=== PATIENT | male | born 1965 | race Asian ===

== ENCOUNTER 2018-05-08 06:25 | Inpatient (IN) | payer OTHER ==
[2018-05-07 11:51] VITALS: BMI 25.5
[2018-05-08 07:09] LABS: ALBUMIN 3.8 g/dl (3.4-5.0); ALK PHOS 59 U/L (45-117); ANION GAP 7 MMOL/L (8-16); BILIRUBIN,TOTAL 0.4 mg/dL (0.2-1); BLOOD UREA NITROGEN 24 mg/dL (7-18); CALCIUM 9.1 mg/dL (8.5-10.1); CHLORIDE 104 mmol/L (98-107); CO2 27 mmol/L (21-32); CREATININE 1.1 mg/dL (0.55-1.3); GLUCOSE,RANDOM 207 mg/dL (74-106); POTASSIUM 4.1 mmol/L (3.5-5.1); SGOT/AST 19 U/L (15-37); SGPT/ALT 39 U/L (13-61); SODIUM 137 mmol/L (136-145); TOT PROT 7.4 g/dl (6.4-8.2)
[2018-05-08] MEDS ORDERED: GENTAMICIN SO4 80 MG/2 ML VIAL ONE (07:19)
[2018-05-08] MEDS ORDERED: LIDOCAINE 1%/EPI 1:100000 (20 ML MULTI DOSE VIAL) ONE (07:19)
[2018-05-08] MEDS ORDERED: THROMBIN (BOVINE) 20,000 UNIT VIAL TP ONE (07:20)
[2018-05-08] MEDS ORDERED: BUPIVACAINE HCL/PF 0.5% (5MG/ML) 10 ML VIAL ONE (07:20)
[2018-05-08] MEDS ORDERED: MIDAZOLAM HCL 2 MG/2 ML SINGLE DOSE VIAL ONE (07:35)
--- NOTE | 2018-05-08 07:58 | HP ---
History & Physical Update - Physical Physical: No Change - Assessment Assessment: No Change - Plan Plan: No Change (No change in medical history since cardiology clearance on . No h/o dvt/pe. Labs reviewed.)
[2018-05-08] MEDS ORDERED: fentaNYL CITRATE 250 MCG/5 ML VIAL ONE (08:12)
[2018-05-08] MEDS ORDERED: VANCOMYCIN 1,000 MG VIAL (RESTRICTED TO ID ONLY) ONE (08:13)
[2018-05-08] MEDS ORDERED: DEXAMETHASONE SOD PHOSPHATE 4 MG/1 ML VIAL ONE (08:13)
[2018-05-08] MEDS ORDERED: ceFAZolin SODIUM 1 GM VIAL ONE ×3 (08:13→16:21)
[2018-05-08] MEDS ORDERED: ceFAZolin 2 GRAM PREMIX BAG IVPB ONE (08:14)
[2018-05-08] MEDS ORDERED: PROPOFOL 20 ML ONE ×2 (08:15)
[2018-05-08] MEDS ORDERED: ROCURONIUM BROMIDE 50 MG/5 ML VIAL ONE ×3 (08:17→10:20)
[2018-05-08] MEDS ORDERED: VANCOMYCIN 1 GRAM (PRE-DOCKED) 1,000 MG/250 ML BAG IVPB ONE (08:25)
[2018-05-08] MEDS ORDERED: RANITIDINE HCL 50 MG/2 ML VIAL ONE (08:26)
[2018-05-08] MEDS ORDERED: LIDOCAINE 1%/EPI 1:100000 (50 ML MULTI DOSE VIAL) NR ONE (08:33)
[2018-05-08] MEDS ORDERED: PHENYLEPHRINE HCL 10 MG/1 ML SINGLE DOSE VIAL ONE ×3 (08:35→12:59)
[2018-05-08] MEDS ORDERED: THROMBIN (BOVINE) 5,000 UNIT VIAL TP ONE (09:15)
[2018-05-08] MEDS ORDERED: BACITRACIN 50,000 UNITS VIAL TP ONE ×2 (09:16→12:15)
[2018-05-08] MEDS ORDERED: GENTAMICIN SO4 80 MG/2 ML VIAL IVPB ONE ×2 (09:17→12:15)
[2018-05-08] MEDS ORDERED: PROMETHAZINE HCL 25 MG/1 ML VIAL IVPUSH PRN (09:20)
[2018-05-08] MEDS ORDERED: DEXAMETHASONE SOD PHOSPHATE 4 MG/1 ML VIAL IVPUSH PRN (09:21)
[2018-05-08] MEDS ORDERED: ONDANSETRON 4 MG/2 ML VIAL IVPUSH PRN ×2 (09:21→13:30)
[2018-05-08] MEDS ORDERED: PROMETHAZINE HCL 25 MG/1 ML VIAL IVPB PRN (09:21)
[2018-05-08] MEDS ORDERED: ePHEDrine SULFATE 50 MG/1 ML AMPULE ONE (11:18)
[2018-05-08] MEDS ORDERED: ceFAZolin SODIUM 1 GM VIAL IVPB ONE (11:19)
[2018-05-08] MEDS ORDERED: BUPIVACAINE HCL/PF (5 MG/ML) 30 ML VIAL IJ ONE (12:23)
[2018-05-08] MEDS ORDERED: ONDANSETRON 4 MG/2 ML VIAL ONE (13:28)
[2018-05-08] MEDS ORDERED: oxyCODONE HCL 5 MG TABLET PO PRN ×2 (13:30)
[2018-05-08] MEDS ORDERED: LACTATED RINGERS SOLUTION 1,000 ML/1,000 ML INFUS.BAG IV SCH (13:30)
[2018-05-08] MEDS ORDERED: diphenhydrAMINE HCL 25 MG CAPSULE (FP) PO PRN (13:30)
[2018-05-08] MEDS ORDERED: morphine SULFATE 4 MG/ML VIAL IVPUSH PRN (13:30)
[2018-05-08] MEDS ORDERED: GLYCOPYRROLATE 0.2 MG/1 ML VIAL ONE (14:01)
[2018-05-08] MEDS ORDERED: NEOSTIGMINE METHYLSULFATE 0.5 MG/1 ML - 10 ML MDV ONE (14:01)
[2018-05-08] MEDS ORDERED: HEPARIN NA (PORCINE) 5,000 UNITS/ML 1ML VIAL SQ SCH (14:45)
[2018-05-08] MEDS ORDERED: HYDROmorphone *PCA* 10MG/50ML DISP.SYRIN PCA ONE (14:46)
[2018-05-08] MEDS: HYDROmorphone *PCA* 10MG/50ML DISP.SYRIN PCA SCH (15:03)
[2018-05-08] MEDS ORDERED: POLYETHYLENE GLYCOL 3350 119 GM BTL PO PRN (15:45)
[2018-05-08 15:59] LABS: BASO % 0.3 % (0-2.0); EOS % 0.2 % (0-4.5); HEMATOCRIT 31.4 % (35.4-49); HEMOGLOBIN 10.7 GM/dL (11.7-16.9); LYMPH % 6.6 % (8-40); MCH 24.8 pg (25.7-33.7); MCHC 34.1 g/dl (32.0-35.9); MEAN CELL VOLUME 72.8 fl (80-96); MEAN PLT VOLUME 8.7 fl (7.5-11.1); MONO % 0.8 % (3.8-10.2); NEUT % 92.1 % (42.8-82.8); PLATELET COUNT 246 K/MM3 (134-434); RBC 4.31 M/mm3 (4.00-5.60); RDW 14.2 % (11.9-15.9); WHITE BLOOD COUNT 14.3 K/mm3 (4.0-10.0)
[2018-05-08 16:21] LABS: ANION GAP 13 MMOL/L (8-16); BLOOD UREA NITROGEN 28 mg/dL (7-18); CALCIUM 8.2 mg/dL (8.5-10.1); CHLORIDE 102 mmol/L (98-107); CO2 19 mmol/L (21-32); CREATININE 1.8 mg/dL (0.55-1.3); POTASSIUM 5.4 mmol/L (3.5-5.1); SODIUM 134 mmol/L (136-145)
[2018-05-08] MEDS: CEFAZOLIN 1 GM in DEXTROSE 5%-WATER - 50 ML IVPB SCH ×2 (16:25→19:55)
[2018-05-08 16:27] LABS: GLUCOSE,RANDOM 426 mg/dL (74-106)
[2018-05-08] MEDS ORDERED: INSULIN SLIDING SCALE (NOVOLOG) 1 VIAL SQ SCH ×3 (16:30→18:46)
[2018-05-08] MEDS ORDERED: CEFAZOLIN 1 GM in DEXTROSE 5%-WATER - 50 ML IVPB SCH (18:00)
--- NOTE | 2018-05-08 18:29 | PN ---
Progress Note (short form) - Note Progress Note: 52 yo man
--- NOTE | 2018-05-08 18:35 | HP ---
Admitting History and Physical - Primary Care Physician PCP: Brian Gaitan - Admission Chief Complaint: postop cervical spinal surgery History of Present Illness: underwent cervical 4-5-6 corpectomies and C2-T1 laminectomies has had prolonged hypotension during procedure and decreased urine output postop no resting in bed History Source: Patient Limitations to Obtaining History: Clinical Condition - Past Medical History Cardiovascular: Yes: HTN Musculoskeletal: Yes: Other (cervical spondylosis) Endocrine: Yes: Diabetes Mellitus (on insulin pump at home) - Past Surgical History Past Surgical History: Yes: None - Smoking History Smoking history: Never smoked - Alcohol/Substance Use Hx Alcohol Use: No - Social History ADL: Independent Home Medications - Allergies Allergies/Adverse Reactions: Allergies Allergy/AdvReac Type Severity Reaction Status Date / Time No Known Allergies Allergy Verified 05/07/18 11:51 - Home Medications Home Medications: Ambulatory Orders Aspirin [Ecotrin] 81 mg PO DAILY 05/07/18 Carvedilol [Coreg -] 25 mg PO DAILY 05/07/18 Celecoxib [Celebrex] 200 mg PO DAILY 05/07/18 Fenofibrate Nanocrystallized [Fenofibrate] 48 mg PO DAILY 05/07/18 Gabapentin [Neurontin] 600 mg PO DAILY 05/07/18 Ibuprofen [Ibu] 600 mg PO BID 05/07/18 Terazosin HCl 4 mg PO HS 05/07/18 Tramadol HCl 50 mg PO PRN 05/07/18 Valsartan 320 mg PO DAILY 05/07/18 Vitamin B Complex [B Complex] 1 each PO DAILY 05/07/18 Family Disease History - Family Disease History Family Disease History: Diabetes: Mother (HTN), Other: Father ( of CAD at 72 ) Review of Systems - Review of Systems HENT: reports: Difficult Swallowing Musculoskeletal: reports: Back Pain (cervical spine pain) Neurological: reports: Dizziness Pain Intensity: 9 Physical Examination Vital Signs: Vital Signs Temperature 97.9 F 05/08/18 16:45 Pulse Rate 113 H 05/08/18 16:45 Respiratory Rate 10 05/08/18 16:45 Blood Pressure 141/74 05/08/18 16:45 O2 Sat by Pulse Oximetry (%) 99 05/08/18 16:45 Constitutional: Yes: Moderate Distress Eyes: Yes: Conjunctiva Clear HENT: Yes: Normocephalic Neck: Yes: Other (in neck brace) Cardiovascular: Yes: Regular Rate and Rhythm Respiratory: Yes: CTA Bilaterally Gastrointestinal: Yes: Normal Bowel Sounds, Soft Renal/: Yes: Mohan Present (draining over 1000cc clear urine) Musculoskeletal: Yes: Back Pain Extremities: Yes: WNL Edema: No Peripheral Pulses WNL: Yes Wound/Incision: Yes: Dressing Dry and Intact, Other (two drain with bloody discharge) Neurological: Yes: Alert ...Motor Strength: WNL (moves all 4 extremities equally) Psychiatric: Yes: WNL Labs: CBC, BMP 05/08/18 15:30 05/08/18 15:30 Problem List - Problems (1) Cervical spondylosis Code(s): M47.812 - SPONDYLOSIS W/O MYELOPATHY OR RADICULOPATHY, CERVICAL REGION Qualifiers: Spinal osteoarthritis complication: with radiculopathy Qualified Code(s): M47.22 - Other spondylosis with radiculopathy, cervical region (2) Hypertension Code(s): I10 - ESSENTIAL (PRIMARY) HYPERTENSION Qualifiers: Hypertension type: essential hypertension Qualified Code(s): I10 - Essential (primary) hypertension (3) Diabetes mellitus Code(s): E11.9 - TYPE 2 DIABETES MELLITUS WITHOUT COMPLICATIONS Qualifiers: Diabetes mellitus type: type 2 Diabetes mellitus joint filler insulin use: with care home use (4) Acute prerenal azotemia Code(s): R79.89 - OTHER SPECIFIED ABNORMAL FINDINGS OF BLOOD CHEMISTRY Assessment/Plan urine output is improving continue iv hydration re-check renal fnct in am hold bp meds for now pain control mohan riss lantus 10 units
[2018-05-08] MEDS: SODIUM CHLORIDE 1,000 ML IV SCH ×2 (18:37→22:17)
[2018-05-08] MEDS: DOCUSATE SODIUM 100 MG CAPSULE (FP) PO SCH ×2 (18:37→21:14)
[2018-05-08] MEDS ORDERED: INSULIN (NOVOLOG) ASPART 100 UNITS/ML 10ML VIAL ONE (19:57)
[2018-05-08 20:05] LABS: PLATELET ESTIMATE ADEQUATE
[2018-05-08] MEDS: CEFAZOLIN 1 GM/D5W 1 GM/50 ML BAG IVPB SCH (20:05)
[2018-05-08] MEDS: INSULIN SLIDING SCALE (NOVOLOG) 1 VIAL SQ SCH (21:15)
[2018-05-08] MEDS: HEPARIN NA (PORCINE) 5,000 UNITS/ML 1ML VIAL SQ SCH (21:15)
[2018-05-08] MEDS ORDERED: INSULIN (LEVEMIR) 100 UNITS/ML UNITS SQ SCH (22:00)
[2018-05-08] MEDS ORDERED: TERAZOSIN HCL 2 MG CAPSULE PO SCH (22:00)
[2018-05-08] MEDS ORDERED: SENNOSIDES 8.6MG TABLET (FP) PO SCH (22:00)
[2018-05-09] MEDS: CEFAZOLIN 1 GM/D5W 1 GM/50 ML BAG IVPB SCH ×3 (01:30→18:45)
[2018-05-09] MEDS: DOCUSATE SODIUM 100 MG CAPSULE (FP) PO SCH ×3 (05:45→21:26)
[2018-05-09] MEDS: HEPARIN NA (PORCINE) 5,000 UNITS/ML 1ML VIAL SQ SCH ×3 (05:45→21:27)
[2018-05-09 06:30] LABS: HEMATOCRIT 29.4 % (35.4-49); HEMOGLOBIN 9.6 GM/dL (11.7-16.9); MCH 23.7 pg (25.7-33.7); MCHC 32.5 g/dl (32.0-35.9); MEAN CELL VOLUME 72.8 fl (80-96); MEAN PLT VOLUME 7.8 fl (7.5-11.1); PLATELET COUNT 208 K/MM3 (134-434); RBC 4.04 M/mm3 (4.00-5.60); RDW 14.2 % (11.9-15.9); WHITE BLOOD COUNT 14.7 K/mm3 (4.0-10.0)
--- NOTE | 2018-05-09 06:36 | HOSP ---
Subjective - Review of Symptoms Events since last encounter: Paged by nursing staff that patient is experiencing Chest pain. Patient describes pain as 3/10, pressure at the left lower sternal border near the 4th intercoastal space that is reproducible with palpation, worse with inhalation and does not radiate. Patient has had diaphoresis since arriving on the floor earlier that evening. Denies any SOB, heart burn, palpitations, nausea. Temp 98.7, BP 131/60, HR 120, R 16, 98% on 2L NC Repeat vitals BP 161/85, HR 125, R 16, 100% on 2L NC Able to speak full sentences, Lying with head of bed elevated Wearing C-Collar with Drain present RRR S1 S2 CTA B/L EKG Ordered shows Sinus Tachycardia to 130, No New ST or T wave changes Troponin ordered STAT Physical Examination Vital Signs: Vital Signs Temperature 97.8 F 05/09/18 01:00 Pulse Rate 120 H 05/09/18 01:00 Respiratory Rate 18 05/09/18 01:00 Blood Pressure 131/60 05/09/18 01:00 O2 Sat by Pulse Oximetry (%) 99 05/08/18 19:35 Visit type - Emergency Visit Emergency Visit: No - New Patient This patient is new to me today: Yes Date on this admission: 05/09/18 - Critical Care Critical Care patient: No
[2018-05-09] MEDS: INSULIN SLIDING SCALE (NOVOLOG) 1 VIAL SQ SCH ×4 (06:39→21:40)
[2018-05-09 06:58] LABS: ANION GAP 6 MMOL/L (8-16); BLOOD UREA NITROGEN 29 mg/dL (7-18); CHLORIDE 106 mmol/L (98-107); CO2 28 mmol/L (21-32); GLUCOSE,RANDOM 218 mg/dL (74-106); POTASSIUM 4.3 mmol/L (3.5-5.1); SODIUM 141 mmol/L (136-145)
[2018-05-09] MEDS: SODIUM CHLORIDE 1,000 ML IV SCH (08:00)
[2018-05-09] MEDS ORDERED: CARVEDILOL 25 MG TABLET (FP) PO SCH ×3 (08:15→10:00)
[2018-05-09] MEDS: VALSARTAN 160 MG TABLET (UD) PO SCH ×2 (08:44→10:19)
--- NOTE | 2018-05-09 08:54 | PN ---
Progress Note (short form) - Note Progress Note: POD#1 anterior and posterior cervical spinal surgery episode of left sided chest pain this am, EKG without acute changes, troponin reviewed no chest pain at present, c./o difficulty swallowing Vital Signs Period Temp Pulse Resp BP Sys/Wood Pulse Ox Last 24 Hr 97.8 F-99.3 F 105-122 10-20 113-167/59-79 98-100 Troponin 0.21 CBC, BMP // 06:20 05/09/ 06:20 S1S2 tachy lungs cta ant cervical drains in place with bloody discharge mohan with clear urine and soft NT tr non pitting edema in hands and feet decreased strength in right arm IMP POD#1 spinal surgery intraop hypotension, prerenal azotemia-resolved, dc iv fluids chest pain-repeat cardiac enzymes, transfer to telemetry, resume bblocker IDDM-increase lantus, cont riss, (resume insulin pump upon discharge) HTN-cont bp meds gi/dvt prophylaxis encourage po intake Problem List - Problems (1) Cervical spondylosis Code(s): M47.812 - SPONDYLOSIS W/O MYELOPATHY OR RADICULOPATHY, CERVICAL REGION Qualifiers: Spinal osteoarthritis complication: with radiculopathy Qualified Code(s): M47.22 - Other spondylosis with radiculopathy, cervical region (2) Hypertension Code(s): I10 - ESSENTIAL (PRIMARY) HYPERTENSION Qualifiers: Hypertension type: essential hypertension Qualified Code(s): I10 - Essential (primary) hypertension (3) Diabetes mellitus Code(s): E11.9 - TYPE 2 DIABETES MELLITUS WITHOUT COMPLICATIONS Qualifiers: Diabetes mellitus type: type 2 Diabetes mellitus intermediate insulin use: with truck terminal manager use (4) Acute prerenal azotemia Code(s): R79.89 - OTHER SPECIFIED ABNORMAL FINDINGS OF BLOOD CHEMISTRY
--- NOTE | 2018-05-09 09:16 | EKG ---
Test Reason : Blood Pressure : / mmHG Vent. Rate : 130 BPM Atrial Rate : 130 BPM P-R Int : 124 ms QRS Dur : 084 ms QT Int : 298 ms P-R-T Axes : 078 032 -11 degrees QTc Int : 438 ms SINUS TACHYCARDIA NONSPECIFIC T WAVE ABNORMALITY ABNORMAL ECG NO PREVIOUS ECGS AVAILABLE Confirmed by IRENE RAINEY, FEDERICO ([id number]) on 05/09/2018 9:15:36 AM Referred By: Deshawn Joyce Confirmed By:FEDERICO BONILLA MD
--- NOTE | 2018-05-09 09:20 | PN ---
Progress Note (short form) - Note Progress Note: POD 1, S/P C4, 5, 6 ACDF, C2-T1 PCDF Pt seen and examined. Am events noted, per RN: Pt c/o chest pain, and difficulty breathing/swallowing ,and right arm sided weakness this AM, pt hypertensive: 167/69, pulse 120, EKG done with no acute changes noted, Troponin 0.21. On exam, pt reports significant pain in his neck, mostly posterior. Has minimal improvement with PANCAKE PROFESSIONAL administration. Endorses headache and slight blurry vision. Has not been oob, is having difficulty swallowing due to throat pain and swelling. States chest pain has resolved. Is having some sob when pain intensity increases. Reports RUE weakness which is new from surgery. Denies n/v/ d, calf pain/edema. Vital Signs Temp 98.4 F 05/09/18 09:00 Pulse 118 H 05/09/18 09:00 Resp 18 05/09/18 09:00 BP 155/91 05/09/18 09:00 Pulse Ox 98 05/09/18 09:00 Intake & Output 05/08/18 05/08/18 05/09/18 11:59 23:59 11:59 Intake Total 6500 800 1150 Output Total 950 3785 1230 Balance 5550 -2985 -80 Weight 178 lb Intake: IV 6500 750 1150 LACTATED RINGERS SOLUTION 250 1,000 ml In 1,000 ml @ 125 mls/hr IV ASDIR TODD Rx#:[id number] Normal Saline - 1,000 ml 1150 @ 115 mls/hr IV ASDIR TODD Rx#:[id number] IVPB 50 Output: Drainage 85 230 drain 1 50 jace 2 180 Urine 200 3700 1000 Mohan 1600 1000 Estimated Blood Loss 750 Other: Voiding Method Indwelling Catheter Indwelling Catheter Height 5 ft 10 in Body Mass Index (BMI) 25.5 Weight Measurement Method Stated by Patient CBC, BMP 05/09/18 06:20 05/09/18 06:20 Gen: awake, alert, appears in pain during exam Neck: anterior dressing c/d/i, mild swelling. Able to speak in full sentences. 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 SILT b/l ue's B/L le's 5/5 DF/PF, Sensation slightly diminished in b/l feet (baseline per pt). A/P: 52 y/o M w/ PMHx htn, hld, IDDM, cervical spondylosis, now POD 1, s/p C4, 5 , 6 ACDF, C2-T1 PCDF. Creatinine improved to baseline. Tachycardic to 120s, secondary to pain. RUE weakness, difficult to ascertain if it is due to a nerve palsy/nerve edema vs pain. Possibly pain related as pt was visualized moving rue during examination. -Pain regimen discussed with anesthesia who will come by to evaluate PANCAKE PROFESSIONAL dosage , Ofirmev 1g q6hrs ordered -Telemetry monitoring ordered -Recheck troponin this afternoon -Monitor vitals -Keep JPs in place, monitor and record output -Keep mohan in place until pt is oob -oob to chair -PT -Bowel regimen as ordered -DVT prophylaxis with Heparin 5000 units sq tid and b/l scds -Incentive spirometry strongly encouraged, visualized pt using IS -Keep brace in place, may remove for 1 hr per day -Continue Ancef 1g q8hrs while drain is in place -Remainder of management per medicine above d/w attending Dr Hernandez and Dr Lamar
[2018-05-09] MEDS ORDERED: BENZOCAINE/MENTH/CETYLPYRD CL 1 EACH LOZENGE MM PRN (09:23)
[2018-05-09] MEDS: HYDROmorphone *PCA* 10MG/50ML DISP.SYRIN PCA SCH (09:30)
[2018-05-09] MEDS ORDERED: GABAPENTIN 300 MG CAPSULE (FP) PO SCH (10:00)
[2018-05-09] MEDS ORDERED: FENOFIBRIC ACID 45 MG CAP PO SCH (10:00)
[2018-05-09] MEDS ORDERED: FOLIC ACID 1 MG TABLET (FP) PO SCH (10:00)
[2018-05-09] MEDS ORDERED: VITAMIN B COMP W-C 1 EA TABLET PO SCH (10:00)
[2018-05-09] MEDS ORDERED: ASPIRIN COATED 81 MG TABLET.EC PO SCH (10:00)
[2018-05-09] MEDS ORDERED: CELECOXIB 200 MG CAPSULE PO SCH (10:00)
[2018-05-09] MEDS ORDERED: VALSARTAN 160 MG TABLET (UD) PO SCH (10:00)
[2018-05-09] MEDS ORDERED: FERROUS SO4 325 MG TABLET (FP) PO SCH (10:00)
[2018-05-09] MEDS: PANTOPRAZOLE SODIUM 40 MG VIAL IVPUSH SCH (10:19)
[2018-05-09] MEDS ORDERED: PT OWN MED DRAWER 7, Y5N ONE ×2 (10:34→16:10)
--- NOTE | 2018-05-09 11:05 | PN ---
Progress Note (short form) - Note Progress Note: Anesthesiology Post-op/Pain Service 52 y.o. man POD#1 s/p Cervical spine corpectomies with reconstruction and C2-T1 Fusion under GA with post-op POLICE OFFICER BOOKING. Pt. is currently in ICU, awaiting telemetry bed. He is in bed, sleepy but responsive. Per RN, pt. has been having hypopneic/apneic episodes which has necessitated a Venti-mask to maintain SpO2 >90%. He has been using POLICE OFFICER BOOKING and is noted to be resting with POLICE OFFICER BOOKING button in hand. Of note, pt has also had recent chest pain which has improved, though accompanied by a troponin spike. 52 y.o. man with post-op chest pain and hypopnea on POLICE OFFICER BOOKING. D/w RN to try non-opiate meds such as IV acetaminophen. Continue POLICE OFFICER BOOKING but discussed taking the POLICE OFFICER BOOKING button out of pt's hand while he is sleeping/groggy so that he does not mistakenly administer another dose. Informed RN to please call if worsening respiratory issues. Primary team to consult Cardiology to f/u on chest pain and troponin levels. Will follow.
[2018-05-09] MEDS ORDERED: morphine SULFATE 4 MG/ML VIAL IVPUSH PRN ×2 (12:00→17:28)
[2018-05-09] MEDS ORDERED: oxyCODONE HCL 5 MG TABLET PO PRN ×6 (12:00→17:28)
[2018-05-09] MEDS: ACETAMINOPHEN 1000 MG/100 ML VIAL (NON FORMULARY) IVPB PRN ×2 (16:31→22:17)
[2018-05-09] MEDS ORDERED: POLYETHYLENE GLYCOL 3350 119 GM BTL PO PRN (17:28)
[2018-05-09] MEDS ORDERED: PROMETHAZINE HCL 25 MG/1 ML VIAL IVPB PRN (17:28)
[2018-05-09] MEDS ORDERED: ONDANSETRON 4 MG/2 ML VIAL IVPUSH PRN ×2 (17:28)
[2018-05-09] MEDS ORDERED: diphenhydrAMINE HCL 25 MG CAPSULE (FP) PO PRN (17:28)
[2018-05-09] MEDS ORDERED: DEXAMETHASONE SOD PHOSPHATE 4 MG/1 ML VIAL IVPUSH PRN (17:28)
[2018-05-09] MEDS: CARVEDILOL 25 MG TABLET (FP) PO SCH (21:26)
[2018-05-09] MEDS: INSULIN (LEVEMIR) 100 UNITS/ML UNITS SQ SCH (21:38)
[2018-05-10] MEDS: CEFAZOLIN 1 GM/D5W 1 GM/50 ML BAG IVPB SCH ×3 (01:32→17:26)
[2018-05-10] MEDS: HYDROmorphone *PCA* 10MG/50ML DISP.SYRIN PCA SCH ×3 (04:48→22:46)
[2018-05-10] MEDS: HEPARIN NA (PORCINE) 5,000 UNITS/ML 1ML VIAL SQ SCH ×3 (05:21→22:04)
[2018-05-10] MEDS: DOCUSATE SODIUM 100 MG CAPSULE (FP) PO SCH ×3 (05:22→22:03)
[2018-05-10 05:47] LABS: BASO % 0.9 % (0-2.0); EOS % 0.8 % (0-4.5); HEMATOCRIT 27.2 % (35.4-49); HEMOGLOBIN 8.8 GM/dL (11.7-16.9); LYMPH % 12.3 % (8-40); MCH 23.9 pg (25.7-33.7); MCHC 32.3 g/dl (32.0-35.9); MEAN CELL VOLUME 74.1 fl (80-96); MEAN PLT VOLUME 8.3 fl (7.5-11.1); MONO % 7.4 % (3.8-10.2); NEUT % 78.6 % (42.8-82.8); PLATELET COUNT 173 K/MM3 (134-434); RBC 3.67 M/mm3 (4.00-5.60); RDW 14.3 % (11.9-15.9); WHITE BLOOD COUNT 10.7 K/mm3 (4.0-10.0)
[2018-05-10] MEDS: INSULIN SLIDING SCALE (NOVOLOG) 1 VIAL SQ SCH ×4 (06:22→22:06)
[2018-05-10 06:42] LABS: ALBUMIN 2.7 g/dl (3.4-5.0); ALK PHOS 45 U/L (45-117); ANION GAP 6 MMOL/L (8-16); BILIRUBIN,TOTAL 0.6 mg/dL (0.2-1); BLOOD UREA NITROGEN 26 mg/dL (7-18); CALCIUM 7.8 mg/dL (8.5-10.1); CHLORIDE 104 mmol/L (98-107); CO2 29 mmol/L (21-32); CREATININE 0.8 mg/dL (0.55-1.3); GLUCOSE,RANDOM 172 mg/dL (74-106); POTASSIUM 4.2 mmol/L (3.5-5.1); SGOT/AST 31 U/L (15-37); SGPT/ALT 30 U/L (13-61); SODIUM 139 mmol/L (136-145); TOT PROT 5.4 g/dl (6.4-8.2)
[2018-05-10] MEDS ORDERED: PT OWN MED DRAWER 7, Y5N ONE (09:50)
[2018-05-10] MEDS: VITAMIN B COMP W-C 1 EA TABLET PO SCH (09:52)
[2018-05-10] MEDS: GABAPENTIN 300 MG CAPSULE (FP) PO SCH (09:52)
[2018-05-10] MEDS: PANTOPRAZOLE SODIUM 40 MG VIAL IVPUSH SCH (09:52)
[2018-05-10] MEDS: VALSARTAN 160 MG TABLET (UD) PO SCH (10:01)
[2018-05-10] MEDS: CARVEDILOL 25 MG TABLET (FP) PO SCH ×2 (10:03→22:04)
[2018-05-10] MEDS: FERROUS SO4 325 MG TABLET (FP) PO SCH (10:03)
[2018-05-10] MEDS: FOLIC ACID 1 MG TABLET (FP) PO SCH (10:03)
[2018-05-10] MEDS: FENOFIBRIC ACID 45 MG CAP PO SCH (10:03)
--- NOTE | 2018-05-10 13:02 | PN ---
Progress Note (short form) - Note Progress Note: no chest pains no cp no nausea or vomiting vs CBC, BMP 05/10/18 05:15 05/10/18 05:15 Heent nad neck colar in place lungs clear heart no change ext no edema ap cad htn dm sp surgery c spine continue abx stable labs are stable
--- NOTE | 2018-05-10 15:41 | PN ---
Progress Note (short form) - Note Progress Note: Anesthesiology Post-op/Pain Service 52 y.o. man POD#2 s/p Cervical spine corpectomies with reconstruction and C2-T1 Fusion under GA with post-op SERVICE SPRINKLER HELPER. Pt. remains in ICU. He is in bed and less sleepy than yesterday. Per RN, pt. has been maintaining his SpO2 at good levels with minimal O2 supplementation while still using the SERVICE SPRINKLER HELPER. However, she states that the pt. is having trouble swallowing and that his dressing site may be slightly swollen. It is difficult to evaluate due to cervical collar. He can swallow liquids but not easily. He no longer c/o CP but does state that he feels as though his right arm is swollen and has paresthesias. Trponin levels drawn yesterday were 0.21-->0.17. VSS. 52 y.o. man post-op cervical spine fusion and corpectomies with post-op SERVICE SPRINKLER HELPER. D/w RN to reach out to surgeon re. swallowing and paresthesia issues and to reach out to medical team regarding possible Cardiology consult in light of his recent chest pain,troponin elevation and now right arm paresthesia. Will continue SERVICE SPRINKLER HELPER since pt. would have difficulty swallowing pills at this time.
[2018-05-10] MEDS: ACETAMINOPHEN 1000 MG/100 ML VIAL (NON FORMULARY) IVPB PRN ×2 (15:48→22:02)
[2018-05-10] MEDS: INSULIN (LEVEMIR) 100 UNITS/ML UNITS SQ SCH (22:05)
[2018-05-11] MEDS: CEFAZOLIN 1 GM/D5W 1 GM/50 ML BAG IVPB SCH ×3 (03:12→17:21)
[2018-05-11] MEDS: INSULIN SLIDING SCALE (NOVOLOG) 1 VIAL SQ SCH ×4 (06:25→22:50)
[2018-05-11] MEDS: DOCUSATE SODIUM 100 MG CAPSULE (FP) PO SCH ×3 (06:29→22:50)
[2018-05-11] MEDS: HEPARIN NA (PORCINE) 5,000 UNITS/ML 1ML VIAL SQ SCH ×3 (06:29→22:50)
[2018-05-11] MEDS ORDERED: PT OWN MED DRAWER 7, Y5N ONE ×2 (08:50→09:27)
[2018-05-11] MEDS: CARVEDILOL 25 MG TABLET (FP) PO SCH ×2 (09:22→22:50)
[2018-05-11] MEDS: FERROUS SO4 325 MG TABLET (FP) PO SCH (09:22)
[2018-05-11] MEDS: VALSARTAN 160 MG TABLET (UD) PO SCH (09:22)
[2018-05-11] MEDS: FOLIC ACID 1 MG TABLET (FP) PO SCH (09:23)
[2018-05-11] MEDS: VITAMIN B COMP W-C 1 EA TABLET PO SCH (09:23)
[2018-05-11] MEDS: PANTOPRAZOLE SODIUM 40 MG VIAL IVPUSH SCH (09:23)
[2018-05-11] MEDS: GABAPENTIN 300 MG CAPSULE (FP) PO SCH (09:23)
[2018-05-11] MEDS: FENOFIBRIC ACID 45 MG CAP PO SCH (09:32)
--- NOTE | 2018-05-11 10:07 | CON.CARD ---
Cardiology Consult (text) - Consultation Consultation Note: HPI: 52 year old male with hx HTN, DM admitted for cervical 4-5-6 corpectomies and C2 -T1 laminectomies with surgical course complicated by prolonged hypotension during procedure and chest pain with troponin 0.17, ECG sinus tachycardia with nonspecific T wave changes- cardiology consulted for further management. Patient with one episode of a nonexertional, L sided dull chest pain during hospital course. Denies any current lh, dizziness, chest pain, palpitations, orthopnea, PND or SANIYA. States is feeling lethargic after his surgery and does not have energy. No further episodes of chest pain. - Past Medical History Cardiovascular: Yes: HTN Musculoskeletal: Yes: Other (cervical spondylosis) Endocrine: Yes: Diabetes Mellitus (on insulin pump at home) - Past Surgical History Past Surgical History: Yes: None - Smoking History Smoking history: Never smoked - Alcohol/Substance Use Hx Alcohol Use: No - Social History ADL: Independent Home Medications - Allergies Allergies/Adverse Reactions: Allergies Allergy/AdvReac Type Severity Reaction Status Date / Time No Known Allergies Allergy Verified 05/07/18 11:51 - Home Medications Home Medications: Ambulatory Orders Aspirin [Ecotrin] 81 mg PO DAILY 05/07/18 Carvedilol [Coreg -] 25 mg PO DAILY 05/07/18 Celecoxib [Celebrex] 200 mg PO DAILY 05/07/18 Fenofibrate Nanocrystallized [Fenofibrate] 48 mg PO DAILY 05/07/18 Gabapentin [Neurontin] 600 mg PO DAILY 05/07/18 Ibuprofen [Ibu] 600 mg PO BID 05/07/18 Terazosin HCl 4 mg PO HS 05/07/18 Tramadol HCl 50 mg PO PRN 05/07/18 Valsartan 320 mg PO DAILY 05/07/18 Vitamin B Complex [B Complex] 1 each PO DAILY 05/07/18 Family Disease History - Family Disease History Family Disease History: Diabetes: Mother (HTN), Other: Father ( of CAD at 72 ) Physical Exam Vital Signs 05/11/18 05/11/18 06:00 07:59 Temperature 97.9 F 98.2 F Pulse Rate 90 80 Respiratory 24 H 20 Rate Blood Pressure 159/85 158/87 O2 Sat by Pulse 100 Oximetry (%) Gen: NAD, wearing neck collar Cardiac: S1/S2 no murmurs Pulm: clear breath sounds Ext: WWP. No edema Active Medications Benzocaine/Menthol (Cepacol Lozenge -) 1 each MM PRN PRN PRN Reason: SORE THROAT Carvedilol (Coreg -) 25 mg PO BID [facility] Last Admin: 05/11/18 09:22 Dose: 25 mg Diphenhydramine HCl (Benadryl -) 25 mg PO Q6H PRN PRN Reason: FOR ITCHING Docusate Sodium (Colace -) 100 mg PO TID [facility] Last Admin: 05/11/18 06:29 Dose: 100 mg Fenofibric Acid (Trilipix -) 45 mg PO DAILY [facility] Last Admin: 05/11/18 09:32 Dose: 45 mg Ferrous Sulfate (Feosol -) 325 mg PO DAILY [facility] Last Admin: 05/11/18 09:22 Dose: 325 mg Folic Acid (Folic Acid -) 1 mg PO DAILY [facility] Last Admin: 05/11/18 09:23 Dose: 1 mg Gabapentin (Neurontin -) 600 mg PO DAILY [facility] Last Admin: 05/11/18 09:23 Dose: 600 mg Heparin Sodium (Porcine) (Heparin -) 5,000 unit SQ TID [facility] Last Admin: 05/11/18 06:29 Dose: 5,000 unit Hydromorphone HCl (Dilaudid Hospice/Home Health Aide -) 10 mg DATA PROCESSING CONTROL CLERK DATA PROCESSING CONTROL CLERK [facility]; Protocol Stop: 05/15/18 09:22 Last Admin: 05/10/18 22:46 Dose: 10 mg Cefazolin Sodium (Ancef 1 Gm Premixed Ivpb -) 1 gm in 50 mls @ 100 mls/hr IVPB Q8H-IV [facility] Last Admin: 05/11/18 09:22 Dose: 100 mls/hr Insulin Aspart (Novolog Vial Sliding Scale -) 1 vial SQ ACHS [facility]; Protocol Last Admin: 05/11/18 06:25 Dose: 4 units Insulin Detemir (Levemir Vial) 10 units SQ HS [facility] Last Admin: 05/10/18 22:05 Dose: 10 units Morphine Sulfate (Morphine Sulfate) 4 mg IVPUSH Q4H PRN PRN Reason: PAIN LEVEL 4-6 Multivit/Ca Carb/B Cmplx/FA/Prenat (Nephro-Candida -) 1 tablet PO DAILY [facility] Last Admin: 05/11/18 09:23 Dose: 1 tablet Ondansetron HCl (Zofran Injection) 4 mg IVPUSH Q6H PRN PRN Reason: NAUSEA Oxycodone HCl (Roxicodone -) 5 mg PO Q4H PRN PRN Reason: PAIN LEVEL 1-3 Oxycodone HCl (Roxicodone -) 10 mg PO Q4H PRN PRN Reason: PAIN LEVEL 7-10 Pantoprazole Sodium (Protonix Iv) 40 mg IVPUSH DAILY [facility] Last Admin: 05/11/18 09:23 Dose: 40 mg Polyethylene Glycol (Miralax (For Daily Use) -) 17 gm PO DAILY PRN PRN Reason: CONSTIPATION Promethazine HCl (Phenergan Injection -) 12.5 mg IVPB Q6H PRN PRN Reason: NAUSEA AND/OR VOMITING Valsartan (Diovan -) 320 mg PO DAILY [facility] Last Admin: 05/11/18 09:22 Dose: 320 mg A/P: 52 year old male with hx HTN, DM admitted for cervical 4-5-6 corpectomies and C2 -T1 laminectomies with surgical course complicated by prolonged hypotension during procedure and chest pain with troponin 0.17, ECG sinus tachycardia with nonspecific T wave changes- cardiology consulted for further management. #NSTEMI Etiology: likely demand from surgery and episode of prolonged hypotension Workup: --ECG sinus tachycardia with nonspecific T wave changes --troponon 0.17, please repeat and continue to trend --order echocardiogram Treatment: --start aspirin 81mg when deemed appropriate from surgical standpoint --start atorvastatin 80mg --continue valsartan 320mg and coreg 25mg BID Will need a pharmacologic nuclear stress test prior to discharge. Johnathan Ryder MD
--- NOTE | 2018-05-11 10:40 | PN ---
Progress Note (short form) - Note Progress Note: no chest pains no cp no nausea or vomiting he is seen by cardio last night he is c/o mild weakness in his rt arm vs Vital Signs Period Temp Pulse Resp BP Sys/Wood Pulse Ox Last 24 Hr 97.9 F-99.5 F 73-90 14-24 126-159/65-87 100-100 CBC, BMP 05/10/18 05:15 05/10/18 05:15 CBCD WBC 10.7 K/mm3 (4.0-10.0) H 05/10/18 05:15 RBC 3.67 M/mm3 (4.00-5.60) L 05/10/18 05:15 Hgb 8.8 GM/dL (11.7-16.9) L 05/10/18 05:15 Hct 27.2 % (35.4-49) L 05/10/18 05:15 MCV 74.1 fl (80-96) L 05/10/18 05:15 MCHC 32.3 g/dl (32.0-35.9) 05/10/18 05:15 RDW 14.3 % (11.9-15.9) 05/10/18 05:15 Plt Count 173 K/MM3 (134-434) 05/10/18 05:15 MPV 8.3 fl (7.5-11.1) 05/10/18 05:15 CMP Sodium 139 mmol/L (136-145) 05/10/18 05:15 Potassium 4.2 mmol/L (3.5-5.1) 05/10/18 05:15 Chloride 104 mmol/L (98-107) 05/10/18 05:15 Carbon Dioxide 29 mmol/L (21-32) 05/10/18 05:15 Anion Gap 6 MMOL/L (8-16) L 05/10/18 05:15 BUN 26 mg/dL (7-18) H 05/10/18 05:15 Creatinine 0.8 mg/dL (0.55-1.3) 05/10/18 05:15 Creat Clearance w eGFR > 60 (>60) 05/10/18 05:15 Random Glucose 172 mg/dL (74-106) H 05/10/18 05:15 Calcium 7.8 mg/dL (8.5-10.1) L 05/10/18 05:15 Total Bilirubin 0.6 mg/dL (0.2-1) 05/10/18 05:15 AST 31 U/L (15-37) 05/10/18 05:15 ALT 30 U/L (13-61) 05/10/18 05:15 Alkaline Phosphatase 45 U/L (45-117) 05/10/18 05:15 Total Protein 5.4 g/dl (6.4-8.2) L 05/10/18 05:15 Albumin 2.7 g/dl (3.4-5.0) L 05/10/18 05:15 CARDIAC ENZYMES Creatine Kinase 1285 IU/L (26-308) H 05/09/18 12:55 Troponin I 0.17 ng/ml (0.00-0.05) H 05/09/18 12:[address] in his neck area lungs clear heart no gallop abd soft and on tender christian science healer he has 4/5 power in upper extremity rt ap s/p spine surgery and elevated troponin continue pain meds oob today ns f/u
--- NOTE | 2018-05-11 17:04 | PN ---
Progress Note (short form) - Note Progress Note: Anesthesia ATTACHE round. POD#3, S/P cervical 4-5-6 corpectomies and C2-T1 laminectomies under GETA. Pat seen and examined. Ambulating today, OOB to chair. Used only 3 mg of ATTACHE Dilaudid during last 24 hours. Pat c/o problem/pain swallowing, has to get pils crushed to swallow, on soft diet. Had been c/o tingling in right arm which has improved today. seen by press operator [employer] re. chest pain andtroponin bump. NSTEMI. Recommended stress test prior to discharge. Currently pain 2-4 /10 in surgical site. VSS. afebrile. NAD.Will continue ATTACHE today, D/C tomorrow as he can swallow with less pain.
[2018-05-11] MEDS: INSULIN (LEVEMIR) 100 UNITS/ML UNITS SQ SCH (22:50)
[2018-05-11] MEDS: ATORVASTATIN CA 80 MG TABLET (FP) PO SCH (22:50)
[2018-05-12] MEDS: HYDROmorphone *PCA* 10MG/50ML DISP.SYRIN PCA SCH (02:36)
[2018-05-12] MEDS: CEFAZOLIN 1 GM/D5W 1 GM/50 ML BAG IVPB SCH ×2 (02:50→09:43)
[2018-05-12] MEDS: HEPARIN NA (PORCINE) 5,000 UNITS/ML 1ML VIAL SQ SCH ×3 (05:53→21:12)
[2018-05-12] MEDS: INSULIN SLIDING SCALE (NOVOLOG) 1 VIAL SQ SCH ×4 (06:03→21:13)
[2018-05-12] MEDS: DOCUSATE SODIUM 100 MG CAPSULE (FP) PO SCH ×3 (06:03→21:12)
[2018-05-12] MEDS ORDERED: oxyCODONE HCL 5 MG TABLET PO PRN (08:28)
--- NOTE | 2018-05-12 08:34 | PN ---
Progress Note (short form) - Note Progress Note: Pain management Patient is four days postop from C2-T1 laminectomy fusion on DOCUMENTUM CONSULTANT for three days for post op pain control. Patient still complaining of difficulty swallowing but is able to tolerate sips of water and soup. Will discontinue DOCUMENTUM CONSULTANT today and convert of oral oxycodone to be crushes if patient cannot tolerate swallowing. Dept of anesthesiology will sign off care at this time
--- NOTE | 2018-05-12 09:17 | PN ---
Progress Note (short form) - Note Progress Note: POD#4 anterior and posterior cervical spinal surgery c/o right sided weakness and numbness weekend overall uneventful CBC, BMP //19 05:15 //19 05:15 Vital Signs Period Temp Pulse Resp BP Sys/Wood Pulse Ox Last 24 Hr 97.6 F-98.5 F 66-88 18-20 122-153/66-86 100 S1S2 RRR lungs cta cervical drains in place with scant bloody discharge mohan with clear yellow urine and soft NT tr non pitting edema in right hand decreased strength in right arm and leg, unable to elevate right arm, machine bander and cellophaner is 3/ 5 RLE strength 3/5 last BM 5 days ago IMP POD#5 spinal surgery intraop hypotension, prerenal azotemia-resolved chest pain-postop strain, minimal elevation in cardiac enzymes, telemetry unremarkable, echo pending IDDM-lantus, riss, (resume insulin pump upon discharge) HTN-cont bp meds Constipation gi/dvt prophylaxis encourage po intake CT head r/o CVA physical therpay dc mohan bowel regimen Problem List - Problems (1) Cervical spondylosis Code(s): M47.812 - SPONDYLOSIS W/O MYELOPATHY OR RADICULOPATHY, CERVICAL REGION Qualifiers: Spinal osteoarthritis complication: with radiculopathy Qualified Code(s): M47.22 - Other spondylosis with radiculopathy, cervical region (2) Hypertension Code(s): I10 - ESSENTIAL (PRIMARY) HYPERTENSION Qualifiers: Hypertension type: essential hypertension Qualified Code(s): I10 - Essential (primary) hypertension (3) Diabetes mellitus Code(s): E11.9 - TYPE 2 DIABETES MELLITUS WITHOUT COMPLICATIONS Qualifiers: Diabetes mellitus type: type 2 Diabetes mellitus alf insulin use: with terminal supervisor use (4) Acute prerenal azotemia Code(s): R79.89 - OTHER SPECIFIED ABNORMAL FINDINGS OF BLOOD CHEMISTRY
[2018-05-12] MEDS: VITAMIN B COMP W-C 1 EA TABLET PO SCH (09:43)
[2018-05-12] MEDS: FOLIC ACID 1 MG TABLET (FP) PO SCH (09:43)
[2018-05-12] MEDS: GABAPENTIN 300 MG CAPSULE (FP) PO SCH (09:44)
[2018-05-12] MEDS: CARVEDILOL 25 MG TABLET (FP) PO SCH ×2 (09:44→21:12)
[2018-05-12] MEDS: PANTOPRAZOLE SODIUM 40 MG VIAL IVPUSH SCH (09:44)
[2018-05-12] MEDS: VALSARTAN 160 MG TABLET (UD) PO SCH (09:44)
--- NOTE | 2018-05-12 09:45 | PN ---
Progress Note (short form) - Note Progress Note: POD 4, S/P C4, 5, 6 ACDF, C2-T1 PCDF Pt seen and examined. Reports improvement in pain over the weekend. Has not been seen by PT yet. Reports resolution of blurry vision. Is tolerating clears, however continues to c/o significant pain/swelling with swallowing. Endorses significant numbness in his RLE (toes to thigh) and weakness in his right leg and right upper extremity. Reports slight CP last night, denies sob, n/v/d, calf pain/edema. Has not had a BM. Vital Signs Temp 98.5 F 05/12/18 06:00 Pulse 74 05/12/18 09:02 Resp 18 05/12/18 09:02 BP 125/78 05/12/18 09:02 Pulse Ox 100 05/12/18 09:00 Intake & Output 05/11/18 05/11/18 05/12/18 11:59 23:59 11:59 Intake Total 250 970 110 Output Total 600 860 840 Balance -350 110 -730 Weight 178 lb Intake: IVPB 50 150 50 Oral 200 820 60 Output: Drainage 100 60 40 drain 1 20 20 10 jace 2 80 40 30 Urine 500 800 800 Mohan 500 800 800 Other: Voiding Method Indwelling Catheter Indwelling Catheter Indwelling Catheter Height 5 ft 10 in Body Mass Index (BMI) 25.5 CBC, BMP 05/10/18 05:15 05/10/18 05:15 Gen: awake, alert, nad, sitting in chair next to bed Neck: incision c/d/i no erythema or drainage. +edema. Able to speak in full sentences without issue. Posterior neck incision c/d/i, no erythema or drainage. Resp: unlabored on NC Abdomen: soft, minimally distended, no rebound, no guarding Neuro: LUE 5/5 biceps/triceps/glass products inspector strength, RUE significantly weaker, unable to lift antigravity, glass products inspector strength 1-2/5. SILT b/l ue's. LLE 5/5 DF/PF/KE/KF/HF , RLE 4+/5 DF/PF/KE/KF/HF. Sensation absent in rle to knee, slight sensation to light touch at proximal thigh. A/P: 52 y/o M w/ PMHx htn, hld, IDDM, cervical spondylosis, now POD 4, s/p C4, 5 , 6 ACDF, C2-T1 PCDF c/b postop NSTEMI thought to be due to demand from surgery/ prolonged hypotension per Cardiology. JACE output low overnight (10 at anterior drain, 30 at posterior drain), both removed without issue. Pt tolerated well. -HCT ordered for r/o cva -Cardiology reccs appreciated, pharmacologic nuclear stress test prior to discharge. -Pain regimen per anesthesia, on ACOUSTICAL LOGGING ENGINEER now -Telemetry monitoring -Monitor vitals -Remove mohan -oob to chair -PT -Bowel regimen as ordered (spoke to RN to administer) -DVT prophylaxis with Heparin 5000 units sq tid and b/l scds -Incentive spirometry strongly encouraged, visualized pt using IS -Keep brace in place, may remove for 1 hr per day -If Head Ct is negative, may resume ASA 81mg qd -Remainder of management per medicine above d/w attending Dr Hernandez and Dr Lamar
[2018-05-12] MEDS: POLYETHYLENE GLYCOL 3350 119 GM BTL PO SCH (10:10)
[2018-05-12] MEDS: FERROUS SO4 325 MG TABLET (FP) PO SCH (10:34)
[2018-05-12] MEDS: oxyCODONE HCL 5 MG TABLET PO PRN ×3 (10:34→21:30)
[2018-05-12] MEDS: FENOFIBRIC ACID 45 MG CAP PO SCH (11:00)
[2018-05-12] MEDS ORDERED: PT OWN MED DRAWER 7, Y5N ONE (12:26)
--- NOTE | 2018-05-12 13:12 | PN ---
Progress Note, Physician History of Present Illness: 52 year old male with hx HTN, DM admitted for cervical 4-5-6 corpectomies and C2 -T1 laminectomies with surgical course complicated by prolonged hypotension during procedure and chest pain with troponin 0.17, ECG sinus tachycardia with nonspecific T wave changes- cardiology consulted for further management. Patient with one episode of a nonexertional, L sided dull chest pain during hospital course. Denies any current lh, dizziness, chest pain, palpitations, orthopnea, PND or SANIYA. States is feeling lethargic after his surgery and does not have energy. No further episodes of chest pain. - Current Medication List Current Medications: Active Medications Atorvastatin Calcium (Lipitor -) 80 mg PO HS [facility] Last Admin: 05/11/18 22:50 Dose: 80 mg Benzocaine/Menthol (Cepacol Lozenge -) 1 each MM PRN PRN PRN Reason: SORE THROAT Carvedilol (Coreg -) 25 mg PO BID [facility] Last Admin: 05/12/18 09:44 Dose: 25 mg Diphenhydramine HCl (Benadryl -) 25 mg PO Q6H PRN PRN Reason: FOR ITCHING Docusate Sodium (Colace -) 100 mg PO TID [facility] Last Admin: 05/12/18 06:03 Dose: 100 mg Fenofibric Acid (Trilipix -) 45 mg PO DAILY [facility] Last Admin: 05/12/18 11:00 Dose: 45 mg Ferrous Sulfate (Feosol -) 325 mg PO DAILY [facility] Last Admin: 05/12/18 10:34 Dose: 325 mg Folic Acid (Folic Acid -) 1 mg PO DAILY [facility] Last Admin: 05/12/18 09:43 Dose: 1 mg Gabapentin (Neurontin -) 600 mg PO DAILY [facility] Last Admin: 05/12/18 09:44 Dose: 600 mg Heparin Sodium (Porcine) (Heparin -) 5,000 unit SQ TID [facility] Last Admin: 05/12/18 05:53 Dose: 5,000 unit Insulin Aspart (Novolog Vial Sliding Scale -) 1 vial SQ [facility]; Protocol Last Admin: 05/12/18 13:05 Dose: 4 units Insulin Detemir (Levemir Vial) 10 units SQ [facility] Last Admin: 05/11/18 22:50 Dose: 10 units Magnesium Hydroxide (Milk Of Magnesia -) 30 ml PO DAILY PRN PRN Reason: CONSTIPATION Morphine Sulfate (Morphine Sulfate) 4 mg IVPUSH Q4H PRN PRN Reason: PAIN LEVEL 4-6 Multivit/Ca Carb/B Cmplx/FA/Prenat (Nephro-Candida -) 1 tablet PO DAILY [facility] Last Admin: 05/12/18 09:43 Dose: 1 tablet Ondansetron HCl (Zofran Injection) 4 mg IVPUSH Q6H PRN PRN Reason: NAUSEA Oxycodone HCl (Roxicodone -) 10 mg PO Q3H PRN PRN Reason: PAIN LEVEL 6-10 Last Admin: 05/12/18 10:34 Dose: 10 mg Oxycodone HCl (Roxicodone -) 5 mg PO Q3H PRN PRN Reason: PAIN LEVEL 1-5 Pantoprazole Sodium (Protonix Iv) 40 mg IVPUSH DAILY [facility] Last Admin: 05/12/18 09:44 Dose: 40 mg Polyethylene Glycol (Miralax (For Daily Use) -) 17 gm PO DAILY [facility] Last Admin: 05/12/18 10:10 Dose: 17 gm Promethazine HCl (Phenergan Injection -) 12.5 mg IVPB Q6H PRN PRN Reason: NAUSEA AND/OR VOMITING Valsartan (Diovan -) 320 mg PO DAILY [facility] Last Admin: 05/12/18 09:44 Dose: 320 mg - Objective Vital Signs: Vital Signs Temperature 98.6 F 05/12/18 11:58 Pulse Rate 76 05/12/18 11:58 Respiratory Rate 18 05/12/18 11:58 Blood Pressure 126/73 05/12/18 11:58 O2 Sat by Pulse Oximetry (%) 100 05/12/18 09:00 Eyes: Yes: WNL, Conjunctiva Clear, EOM Intact HENT: Yes: WNL, Atraumatic, Normocephalic Neck: Yes: WNL, Supple, Trachea Midline Cardiovascular: Yes: WNL, Regular Rate and Rhythm Respiratory: Yes: WNL, Regular, CTA Bilaterally Gastrointestinal: Yes: WNL, Normal Bowel Sounds Genitourinary: Yes: WNL Musculoskeletal: Yes: WNL Extremities: Yes: WNL Edema: No Integumentary: Yes: WNL Neurological: Yes: WNL, Alert, Oriented ...Motor Strength: WNL Psychiatric: Yes: WNL Labs: CBC, BMP 05/10/18 05:15 05/10/18 05:15 Assessment/Plan A/P: 52 year old male with hx HTN, DM admitted for cervical 4-5-6 corpectomies and C2 -T1 laminectomies with surgical course complicated by prolonged hypotension during procedure and chest pain with troponin 0.17, ECG sinus tachycardia with nonspecific T wave changes- cardiology consulted for further management. #NSTEMI Etiology: likely demand from surgery and episode of prolonged hypotension Workup: --ECG sinus tachycardia with nonspecific T wave changes --troponon 0.17, please repeat and continue to trend --order echocardiogram Treatment: --start aspirin 81mg when deemed appropriate from surgical standpoint --start atorvastatin 80mg --continue valsartan 320mg and coreg 25mg BID Will need a pharmacologic nuclear stress test prior to discharge. cc time 36 min
[2018-05-12] MEDS: MAGNESIUM HYDROX 2400MG/30ML ORAL SUSPENSION 30 ML CUP PO PRN (13:37)
[2018-05-12] MEDS: ATORVASTATIN CA 80 MG TABLET (FP) PO SCH (21:13)
[2018-05-12] MEDS: INSULIN (LEVEMIR) 100 UNITS/ML UNITS SQ SCH (21:14)
[2018-05-13] MEDS: oxyCODONE HCL 5 MG TABLET PO PRN ×5 (04:28→21:13)
[2018-05-13] MEDS: DOCUSATE SODIUM 100 MG CAPSULE (FP) PO SCH ×3 (05:47→21:00)
[2018-05-13] MEDS: HEPARIN NA (PORCINE) 5,000 UNITS/ML 1ML VIAL SQ SCH ×3 (05:47→21:01)
[2018-05-13] MEDS: INSULIN SLIDING SCALE (NOVOLOG) 1 VIAL SQ SCH ×4 (06:15→21:36)
--- NOTE | 2018-05-13 08:25 | PN ---
Progress Note (short form) - Note Progress Note: POD 5, S/P C4, 5, 6 ACDF, C2-T1 PCDF Pt seen and examined. Reports feeling frustrated over the weakness he is experiencing on his right side. Is concerned that he may not return to his baseline functional status as he has 6 children and his does not drive. Is tolerating clears, however continues to c/o significant pain/swelling with swallowing. Was oob with PT yesterday ambulating with use of walker. No BM yet, Passed TOV. No CP at this time. Denies sob, n/v/d, calf pain/edema. Has not had a BM. Vital Signs Temp 98.2 F 05/13/18 06:00 Pulse 76 05/13/18 06:00 Resp 18 05/13/18 06:00 BP 140/70 05/13/18 06:00 Pulse Ox 100 05/12/18 19:15 Intake & Output 05/12/18 05/12/18 05/13/18 11:59 23:59 11:59 Intake Total 110 340 50 Output Total 840 900 Balance -730 -560 50 Intake: IVPB 50 Oral 60 340 50 Output: Drainage 40 drain 1 10 jace 2 30 Urine 800 900 Dumont 800 Void 900 Other: Voiding Method Indwelling Catheter Urinal # Unmeasured Voids Void 1 Bowel Movement No No CBC, BMP 05/10/18 05:15 05/10/18 05:15 Gen: awake, alert, nad, laying in bed Neck: Anterior and Posterior dressings c/d/i. Resp: CTA anteriorly, unlabored on RA CV: rrr, s1s2 Abdomen: soft, NT/ND, no rebound, no guarding Neuro: LUE 5/5 biceps/triceps/product coordinator strength, RUE significantly weaker, unable to lift antigravity, product coordinator strength 1-2/5. SILT b/l ue's. LLE 5/5 DF/PF/KE/KF/HF , RLE 4+/5 DF/PF/KE/KF/HF. Sensation absent in rle to knee, slight sensation to light touch at proximal thigh. HCT 05/12/18: No significant interval change or gross acute intracranial pathology is identified. Correlate clinically to determine further evaluation and follow up. A/P: 52 y/o M w/ PMHx htn, hld, IDDM, cervical spondylosis, now POD 5, s/p C4, 5 , 6 ACDF, C2-T1 PCDF c/b postop NSTEMI thought to be due to demand from surgery/ prolonged hypotension per Cardiology. Pt frustrated due to current status, extensive discussion with pt regarding plan for PT, importance of continuing exercises provided by PT throughout the day and on d/c, various d/c options including rehab, etc. Reassurance provided. Pt verbalized understanding. -Cardiology reccs appreciated, pharmacologic nuclear stress test prior to discharge. -Pain regimen per anesthesia, on TRANSPORT CONDUCTOR now -Telemetry monitoring -Monitor vitals -oob to chair -PT -Bowel regimen as ordered (spoke to RN to administer) -DVT prophylaxis with Heparin 5000 units sq tid and b/l scds -Incentive spirometry strongly encouraged, visualized pt using IS -Keep brace in place, may remove for 1 hr per day -May Resume ASA 81mg qd -Remainder of management per medicine above d/w attending Dr Hernandez and Dr Lamar
--- NOTE | 2018-05-13 09:06 | PN ---
Progress Note (short form) - Note Progress Note: POD#5 anterior and posterior cervical spinal surgery c/o right sided weakness and numbness upset with slow recovery head CT was negative Vital Signs Period Temp Pulse Resp BP Sys/Wood Pulse Ox Last 24 Hr 97.8 F-98.6 F 71-88 18-18 118-143/66-73 100 S1S2 RRR lungs cta cervical drains removed yesterday mohan removed yesterday-voiding well and soft NT tr non pitting edema in right hand decreased strength in right arm and leg, unable to elevate right arm, cloth seconds sorter is 3/ 5 RLE strength 3/5-better than yesterday last BM 6 days ago IMP POD#5 spinal surgery intraop hypotension, prerenal azotemia-resolved chest pain-postop strain, minimal elevation in cardiac enzymes, telemetry unremarkable, echo reviewed, ok IDDM-lantus, riss, (resume insulin pump upon discharge) HTN-cont bp meds Constipation dvt prophylaxis encourage po intake aggressive physical therapy bowel regimen can transfer to med/surg if ok with neurosurgery and cardio Problem List - Problems (1) Cervical spondylosis Code(s): M47.812 - SPONDYLOSIS W/O MYELOPATHY OR RADICULOPATHY, CERVICAL REGION Qualifiers: Spinal osteoarthritis complication: with radiculopathy Qualified Code(s): M47.22 - Other spondylosis with radiculopathy, cervical region (2) Hypertension Code(s): I10 - ESSENTIAL (PRIMARY) HYPERTENSION Qualifiers: Hypertension type: essential hypertension Qualified Code(s): I10 - Essential (primary) hypertension (3) Diabetes mellitus Code(s): E11.9 - TYPE 2 DIABETES MELLITUS WITHOUT COMPLICATIONS Qualifiers: Diabetes mellitus type: type 2 Diabetes mellitus 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
[2018-05-13 09:43] LABS: BASO % 0.7 % (0-2.0); EOS % 1.6 % (0-4.5); HEMATOCRIT 28.3 % (35.4-49); HEMOGLOBIN 9.2 GM/dL (11.7-16.9); LYMPH % 15.4 % (8-40); MCH 23.7 pg (25.7-33.7); MCHC 32.4 g/dl (32.0-35.9); MEAN CELL VOLUME 73.2 fl (80-96); MEAN PLT VOLUME 7.6 fl (7.5-11.1); MONO % 8.4 % (3.8-10.2); NEUT % 73.9 % (42.8-82.8); PLATELET COUNT 226 K/MM3 (134-434); RBC 3.86 M/mm3 (4.00-5.60); RDW 13.7 % (11.9-15.9); WHITE BLOOD COUNT 10.4 K/mm3 (4.0-10.0)
[2018-05-13] MEDS: GABAPENTIN 300 MG CAPSULE (FP) PO SCH (10:07)
[2018-05-13] MEDS: VITAMIN B COMP W-C 1 EA TABLET PO SCH (10:07)
[2018-05-13] MEDS: FERROUS SO4 325 MG TABLET (FP) PO SCH (10:07)
[2018-05-13] MEDS: FOLIC ACID 1 MG TABLET (FP) PO SCH (10:07)
[2018-05-13] MEDS: VALSARTAN 160 MG TABLET (UD) PO SCH (10:07)
[2018-05-13] MEDS: CARVEDILOL 25 MG TABLET (FP) PO SCH ×2 (10:07→21:00)
[2018-05-13] MEDS: POLYETHYLENE GLYCOL 3350 119 GM BTL PO SCH (10:08)
[2018-05-13 10:12] LABS: ALBUMIN 2.8 g/dl (3.4-5.0); ALK PHOS 71 U/L (45-117); ANION GAP 7 MMOL/L (8-16); BILIRUBIN,TOTAL 0.5 mg/dL (0.2-1); BLOOD UREA NITROGEN 26 mg/dL (7-18); CALCIUM 8.4 mg/dL (8.5-10.1); CHLORIDE 103 mmol/L (98-107); CO2 27 mmol/L (21-32); CREATININE 0.8 mg/dL (0.55-1.3); GLUCOSE,RANDOM 172 mg/dL (74-106); POTASSIUM 4.6 mmol/L (3.5-5.1); SGOT/AST 13 U/L (15-37); SGPT/ALT 25 U/L (13-61); SODIUM 137 mmol/L (136-145); TOT PROT 6.1 g/dl (6.4-8.2)
[2018-05-13] MEDS ORDERED: PT OWN MED DRAWER 7, Y5N ONE (10:29)
--- NOTE | 2018-05-13 11:14 | PN ---
Progress Note (short form) - Note Progress Note: Patient is making modest recovery from Complex multilevel circumferential Cervical decompression, realignment and fusion. Patient initially expresses frustration with his condition and pace of recovery. I discussed the various medical concerns with him and he was able to verbalize an understanding. Right sided weakness - This is slowly improving and fluctuating. CT Head did NOT reveal any CVA. Patient had new acute HNP at C45 on the Right which progressed since his last MRI and accounts for his worsening neck pain immediately prior to surgery. With rehabilitation and Physical Therapy, he should improve. His primary concern is an upcoming visit to [facility] in June where he understandably hopes to be improved enough to travel. Swallowing difficulties - While commonly seen after the surgery he underwent, his frustration is completely understandable. Fortunately, he is improving as expected. His drains are out which should help as will spending more time upright. Blood Pressure - He was somewhat hypotensive during the surgeries and his anti- hypertensive regimen was held after surgery. Overnight, he developed pain and his blood pressure elevated which was associated with Cardiac strain. His blood pressure is under much better control at this time. Cardiac Strain - The patient underwent Cardiac clearance prior to surgery, however, he did have mild elevation of his Troponin and diaphoresis associated with his pain and hypertension. He will undergo Cardiac evaluation prior to discharge (Echo and pharmacological Stress testing) Pain - Patient making slow improvement and METAL MACHINE SETTER was weaned. As his oral intake progressively improves and as time passes, he should continue to have better pain control. Patient appeared to be comforted after this discussion and agrees that he is making slow progress on all fronts.
[2018-05-13] MEDS: FENOFIBRIC ACID 45 MG CAP PO SCH (11:49)
[2018-05-13] MEDS: MAGNESIUM HYDROX 2400MG/30ML ORAL SUSPENSION 30 ML CUP PO PRN (18:13)
[2018-05-13] MEDS: ATORVASTATIN CA 80 MG TABLET (FP) PO SCH (21:12)
[2018-05-13] MEDS: INSULIN (LEVEMIR) 100 UNITS/ML UNITS SQ SCH (21:52)
[2018-05-14] MEDS: oxyCODONE HCL 5 MG TABLET PO PRN ×5 (01:13→19:40)
[2018-05-14] MEDS: HEPARIN NA (PORCINE) 5,000 UNITS/ML 1ML VIAL SQ SCH ×3 (05:39→21:30)
[2018-05-14] MEDS: DOCUSATE SODIUM 100 MG CAPSULE (FP) PO SCH ×3 (05:39→21:30)
[2018-05-14] MEDS: INSULIN SLIDING SCALE (NOVOLOG) 1 VIAL SQ SCH ×4 (06:18→21:31)
--- NOTE | 2018-05-14 08:45 | PN ---
Progress Note, Physician Chief Complaint: Pt A&Ox3; no chest pain or dyspnea; frustrated at potentially prolonged course for recovery. History of Present Illness: 52 yr old man (b. [place]) who underwent cervical 4-5-6 corpectomies and C2-T1 laminectomies has had prolonged hypotension during procedure and decreased urine output postop no resting in bed - Current Medication List Current Medications: Active Medications Atorvastatin Calcium (Lipitor -) 80 mg PO HS [facility] Last Admin: 05/13/18 21:12 Dose: 80 mg Benzocaine/Menthol (Cepacol Lozenge -) 1 each MM PRN PRN PRN Reason: SORE THROAT Carvedilol (Coreg -) 25 mg PO BID [facility] Last Admin: 05/13/18 21:00 Dose: 25 mg Diphenhydramine HCl (Benadryl -) 25 mg PO Q6H PRN PRN Reason: FOR ITCHING Docusate Sodium (Colace -) 100 mg PO TID [facility] Last Admin: 05/14/18 05:39 Dose: 100 mg Fenofibric Acid (Trilipix -) 45 mg PO DAILY [facility] Last Admin: 05/13/18 11:49 Dose: 45 mg Ferrous Sulfate (Feosol -) 325 mg PO DAILY [facility] Last Admin: 05/13/18 10:07 Dose: 325 mg Folic Acid (Folic Acid -) 1 mg PO DAILY [facility] Last Admin: 05/13/18 10:07 Dose: 1 mg Gabapentin (Neurontin -) 600 mg PO DAILY [facility] Last Admin: 05/13/18 10:07 Dose: 600 mg Heparin Sodium (Porcine) (Heparin -) 5,000 unit SQ TID [facility] Last Admin: 05/14/18 05:39 Dose: 5,000 unit Insulin Aspart (Novolog Vial Sliding Scale -) 1 vial SQ [facility]; Protocol Last Admin: 05/14/18 06:18 Dose: 4 units Insulin Detemir (Levemir Vial) 10 units SQ [facility] Last Admin: 05/13/18 21:52 Dose: 10 units Magnesium Hydroxide (Milk Of Magnesia -) 30 ml PO DAILY PRN PRN Reason: CONSTIPATION Last Admin: 05/13/18 18:13 Dose: 30 ml Multivit/Ca Carb/B Cmplx/FA/Prenat (Nephro-Candida -) 1 tablet PO DAILY [facility] Last Admin: 05/13/18 10:07 Dose: 1 tablet Ondansetron HCl (Zofran Injection) 4 mg IVPUSH Q6H PRN PRN Reason: NAUSEA Oxycodone HCl (Roxicodone -) 10 mg PO Q3H PRN PRN Reason: PAIN LEVEL 6-10 Last Admin: 05/14/18 08:09 Dose: 10 mg Oxycodone HCl (Roxicodone -) 5 mg PO Q3H PRN PRN Reason: PAIN LEVEL 1-5 Last Admin: 05/12/18 13:36 Dose: 5 mg Polyethylene Glycol (Miralax (For Daily Use) -) 17 gm PO DAILY [facility] Last Admin: 05/13/18 10:08 Dose: 17 gm Promethazine HCl (Phenergan Injection -) 12.5 mg IVPB Q6H PRN PRN Reason: NAUSEA AND/OR VOMITING Valsartan (Diovan -) 320 mg PO DAILY [facility] Last Admin: 05/13/18 10:07 Dose: 320 mg - Objective Vital Signs: Vital Signs Temperature 99.6 F 05/14/18 06:00 Pulse Rate 83 05/14/18 06:00 Respiratory Rate 21 H 05/14/18 06:00 Blood Pressure 96/84 05/14/18 06:00 O2 Sat by Pulse Oximetry (%) 95 05/13/18 20:41 Constitutional: Yes: Anxious Eyes: Yes: WNL HENT: Yes: Other Neck: Yes: Rigid (post-op) Cardiovascular: Yes: WNL Respiratory: Yes: WNL Gastrointestinal: Yes: Soft ...Rectal Exam: Yes: Deferred Labs: CBC, BMP 05/13/18 09:20 05/13/18 09:20 Problem List - Problems (1) H/O cervical spine surgery Code(s): Z98.890 - OTHER SPECIFIED POSTPROCEDURAL STATES (2) Cervical spondylosis Code(s): M47.812 - SPONDYLOSIS W/O MYELOPATHY OR RADICULOPATHY, CERVICAL REGION Qualifiers: Spinal osteoarthritis complication: with radiculopathy Qualified Code(s): M47.22 - Other spondylosis with radiculopathy, cervical region (3) Diabetes mellitus Code(s): E11.9 - TYPE 2 DIABETES MELLITUS WITHOUT COMPLICATIONS Qualifiers: Diabetes mellitus type: type 2 Diabetes mellitus chcf insulin use: with chcf use (4) Hypertension Code(s): I10 - ESSENTIAL (PRIMARY) HYPERTENSION Qualifiers: Hypertension type: essential hypertension Qualified Code(s): I10 - Essential (primary) hypertension (5) Elevated troponin Assessment/Plan: Level decreased from maximum 0.17 to 0.02. ECHO: normal LVEF; no regional wall motion abnormalities mentioned. F/u EKG. Multiple CAD risks, including DM and HTN; episode of chest pain during admission. For stress MIBI when stable. (Extremely high HDL 06/23; will repeat; pt is on high-dose atorvastatin). Code(s): R74.8 - ABNORMAL LEVELS OF OTHER SERUM ENZYMES
[2018-05-14] MEDS ORDERED: PT OWN MED DRAWER 7, Y5N ONE (10:00)
[2018-05-14] MEDS: GABAPENTIN 300 MG CAPSULE (FP) PO SCH (10:37)
[2018-05-14] MEDS: FERROUS SO4 325 MG TABLET (FP) PO SCH (10:38)
[2018-05-14] MEDS: FENOFIBRIC ACID 45 MG CAP PO SCH (10:38)
[2018-05-14] MEDS: VALSARTAN 160 MG TABLET (UD) PO SCH (10:38)
[2018-05-14] MEDS: POLYETHYLENE GLYCOL 3350 119 GM BTL PO SCH (10:38)
[2018-05-14] MEDS: FOLIC ACID 1 MG TABLET (FP) PO SCH (10:38)
[2018-05-14] MEDS: CARVEDILOL 25 MG TABLET (FP) PO SCH ×2 (10:38→21:30)
[2018-05-14] MEDS: VITAMIN B COMP W-C 1 EA TABLET PO SCH (10:38)
--- NOTE | 2018-05-14 10:55 | PN ---
Progress Note, Physician History of Present Illness: 52 year old male with hx HTN, DM admitted for cervical 4-5-6 corpectomies and C2 -T1 laminectomies with surgical course complicated by prolonged hypotension during procedure and chest pain with troponin 0.17, ECG sinus tachycardia with nonspecific T wave changes- cardiology consulted for further management. Patient with one episode of a nonexertional, L sided dull chest pain during hospital course. Denies any current lh, dizziness, chest pain, palpitations, orthopnea, PND or SANIYA. States is feeling lethargic after his surgery and does not have energy. No further episodes of chest pain. - Current Medication List Current Medications: Active Medications Atorvastatin Calcium (Lipitor -) 80 mg PO HS [facility] Last Admin: 05/13/18 21:12 Dose: 80 mg Benzocaine/Menthol (Cepacol Lozenge -) 1 each MM PRN PRN PRN Reason: SORE THROAT Carvedilol (Coreg -) 25 mg PO BID [facility] Last Admin: 05/14/18 10:38 Dose: 25 mg Diphenhydramine HCl (Benadryl -) 25 mg PO Q6H PRN PRN Reason: FOR ITCHING Docusate Sodium (Colace -) 100 mg PO TID [facility] Last Admin: 05/14/18 05:39 Dose: 100 mg Fenofibric Acid (Trilipix -) 45 mg PO DAILY [facility] Last Admin: 05/14/18 10:38 Dose: 45 mg Ferrous Sulfate (Feosol -) 325 mg PO DAILY [facility] Last Admin: 05/14/18 10:38 Dose: 325 mg Folic Acid (Folic Acid -) 1 mg PO DAILY [facility] Last Admin: 05/14/18 10:38 Dose: 1 mg Gabapentin (Neurontin -) 600 mg PO DAILY [facility] Last Admin: 05/14/18 10:37 Dose: 600 mg Heparin Sodium (Porcine) (Heparin -) 5,000 unit SQ TID [facility] Last Admin: 05/14/18 05:39 Dose: 5,000 unit Insulin Aspart (Novolog Vial Sliding Scale -) [address] [facility]; Protocol Last Admin: 05/14/18 06:18 Dose: 4 units Insulin Detemir (Levemir Vial) 10 units SQ [facility] Last Admin: 05/13/18 21:52 Dose: 10 units Magnesium Hydroxide (Milk Of Magnesia -) 30 ml PO DAILY PRN PRN Reason: CONSTIPATION Last Admin: 05/13/18 18:13 Dose: 30 ml Multivit/Ca Carb/B Cmplx/FA/Prenat (Nephro-Candida -) 1 tablet PO DAILY [facility] Last Admin: 05/14/18 10:38 Dose: 1 tablet Ondansetron HCl (Zofran Injection) 4 mg IVPUSH Q6H PRN PRN Reason: NAUSEA Oxycodone HCl (Roxicodone -) 10 mg PO Q3H PRN PRN Reason: PAIN LEVEL 6-10 Last Admin: 05/14/18 08:09 Dose: 10 mg Oxycodone HCl (Roxicodone -) 5 mg PO Q3H PRN PRN Reason: PAIN LEVEL 1-5 Last Admin: 05/12/18 13:36 Dose: 5 mg Polyethylene Glycol (Miralax (For Daily Use) -) 17 gm PO DAILY [facility] Last Admin: 05/14/18 10:38 Dose: 17 gm Promethazine HCl (Phenergan Injection -) 12.5 mg IVPB Q6H PRN PRN Reason: NAUSEA AND/OR VOMITING Valsartan (Diovan -) 320 mg PO DAILY [facility] Last Admin: 05/14/18 10:38 Dose: 320 mg - Objective Vital Signs: Vital Signs Temperature 99.6 F 05/14/18 06:00 Pulse Rate 78 05/14/18 10:36 Respiratory Rate 18 05/14/18 10:36 Blood Pressure 146/86 05/14/18 10:36 O2 Sat by Pulse Oximetry (%) 95 05/13/18 20:41 Eyes: Yes: WNL, Conjunctiva Clear, EOM Intact HENT: Yes: WNL, Atraumatic, Normocephalic Neck: Yes: WNL, Supple, Trachea Midline Cardiovascular: Yes: WNL, Regular Rate and Rhythm Respiratory: Yes: WNL, Regular, CTA Bilaterally Gastrointestinal: Yes: WNL, Normal Bowel Sounds Genitourinary: Yes: WNL Musculoskeletal: Yes: WNL Extremities: Yes: WNL Edema: No Integumentary: Yes: WNL Neurological: Yes: WNL, Alert, Oriented ...Motor Strength: WNL Psychiatric: Yes: WNL Labs: CBC, BMP 05/13/18 09:20 05/13/18 09:20 Assessment/Plan - Problems (1) H/O cervical spine surgery Code(s): Z98.890 - OTHER SPECIFIED POSTPROCEDURAL STATES (2) Cervical spondylosis Code(s): M47.812 - SPONDYLOSIS W/O MYELOPATHY OR RADICULOPATHY, CERVICAL REGION Qualifiers: Spinal osteoarthritis complication: with radiculopathy Qualified Code(s): M47.22 - Other spondylosis with radiculopathy, cervical region (3) Diabetes mellitus Code(s): E11.9 - TYPE 2 DIABETES MELLITUS WITHOUT COMPLICATIONS Qualifiers: Diabetes mellitus type: type 2 Diabetes mellitus poultry breeder insulin use: with detention use (4) Hypertension Code(s): I10 - ESSENTIAL (PRIMARY) HYPERTENSION Qualifiers: Hypertension type: essential hypertension Qualified Code(s): I10 - Essential (primary) hypertension (5) Elevated troponin Assessment/Plan: Level decreased from maximum 0.17 to 0.02. ECHO: normal LVEF; no regional wall motion abnormalities mentioned. F/u EKG. Multiple CAD risks, including DM and HTN; episode of chest pain during admission. For stress MIBI when stable. (Extremely high HDL 06/23; will repeat; pt is on high-dose atorvastatin). Code(s): R74.8 - ABNORMAL LEVELS OF OTHER SERUM ENZYMES ekg normal today cc time spent 36 min
--- NOTE | 2018-05-14 10:58 | EKG ---
Test Reason : Blood Pressure : / mmHG Vent. Rate : 067 BPM Atrial Rate : 067 BPM P-R Int : 112 ms QRS Dur : 088 ms QT Int : 374 ms P-R-T Axes : 064 039 039 degrees QTc Int : 395 ms NORMAL SINUS RHYTHM NORMAL ECG WHEN COMPARED WITH ECG OF 09-MAY-2018 06:05, VENT. RATE HAS DECREASED BY 63 BPM NONSPECIFIC T WAVE ABNORMALITY, IMPROVED IN INFERIOR LEADS T WAVE INVERSION NO LONGER EVIDENT IN ANTERIOR LEADS PATIENT SITTING IN CHAIR DURING EKG Confirmed by IRENE RAINEY, FEDERICO ([id number]) on 05/14/2018 10:58:27 AM Referred By: Deshawn Joyce Confirmed By:FEDERICO BONILLA MD
--- NOTE | 2018-05-14 11:55 | PN ---
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 3/ 5-better RLE strength 3/5-better than yesterday IMP POD#6 spinal surgery intraop hypotension, prerenal azotemia-resolved chest pain-postop strain, minimal elevation in cardiac enzymes, telemetry unremarkable, echo reviewed, ok IDDM-lantus, riss, (resume insulin pump upon discharge) HTN-cont bp meds Constipation dvt prophylaxis encourage po intake aggressive physical therapy bowel regimen ordered stress test for tomorrow am-if negative will plan dc Problem List - Problems (1) Cervical spondylosis Code(s): M47.812 - SPONDYLOSIS W/O MYELOPATHY OR RADICULOPATHY, CERVICAL REGION Qualifiers: Spinal osteoarthritis complication: with radiculopathy Qualified Code(s): M47.22 - Other spondylosis with radiculopathy, cervical region (2) Hypertension Code(s): I10 - ESSENTIAL (PRIMARY) HYPERTENSION Qualifiers: Hypertension type: essential hypertension Qualified Code(s): I10 - Essential (primary) hypertension (3) Diabetes mellitus Code(s): E11.9 - TYPE 2 DIABETES MELLITUS WITHOUT COMPLICATIONS Qualifiers: Diabetes mellitus type: type 2 Diabetes mellitus long-term insulin use: with terminal operations manager use (4) Acute prerenal azotemia Code(s): R79.89 - OTHER SPECIFIED ABNORMAL FINDINGS OF BLOOD CHEMISTRY
--- NOTE | 2018-05-14 13:32 | PN ---
Progress Note (short form) - Note Progress Note: Patient remains stable and is ready for transfer to Med/Surg floor from Neurosurgery standpoint. Patient should be ready for intensive rehabilitation program soon afterwards pending Cardiology clearance.
[2018-05-14 13:41] LABS: CHOLESTEROL 167 mg/dL (50-200); HDL CHOLESTEROL 96 mg/dL (40-60); TRIGLYCERIDES 193 mg/dL (0-150)
[2018-05-14] MEDS: INSULIN (LEVEMIR) 100 UNITS/ML UNITS SQ SCH (21:30)
[2018-05-14] MEDS: ATORVASTATIN CA 80 MG TABLET (FP) PO SCH (21:30)
[2018-05-15] MEDS: oxyCODONE HCL 5 MG TABLET PO PRN ×4 (01:15→19:51)
[2018-05-15] MEDS: DOCUSATE SODIUM 100 MG CAPSULE (FP) PO SCH ×3 (05:57→22:15)
[2018-05-15] MEDS: HEPARIN NA (PORCINE) 5,000 UNITS/ML 1ML VIAL SQ SCH ×3 (05:57→22:16)
[2018-05-15] MEDS: INSULIN SLIDING SCALE (NOVOLOG) 1 VIAL SQ SCH ×4 (08:04→22:20)
--- NOTE | 2018-05-15 08:20 | PN ---
Progress Note (short form) - Note Progress Note: POD 7, S/P C4, 5, 6 ACDF, C2-T1 PCDF Pt seen and examined. In better spirits today. Reports pain with movement which is controlled with PO pain meds. Is tolerating PO in small amounts. Was oob with PT yesterday ambulating with use of walker. No BM yet, voiding without issue. No CP at this time. Denies sob, n/v/d, calf pain/edema. Has not had a BM. Vital Signs Temp 98.7 F 05/14/18 13:17 Pulse 74 05/15/18 04:00 Resp 18 05/15/18 04:00 BP 130/70 05/15/18 04:00 Pulse Ox 95 05/14/18 21:00 Intake & Output 05/14/18 05/14/18 05/15/18 11:59 23:59 11:59 Intake Total 300 400 300 Output Total 600 1550 600 Balance -300 -1150 -300 Intake: Oral 300 400 300 Output: Urine 600 1550 600 Void 600 1550 600 Other: Voiding Method Urinal Bowel Movement No No No CBC, BMP 05/13/18 09:20 05/13/18 09:20 Gen: awake, alert, nad, laying in bed Neck: Anterior and Posterior dressings c/d/i. Resp: CTA anteriorly, unlabored on RA CV: rrr, s1s2 Abdomen: soft, NT/ND, no rebound, no guarding Neuro: LUE 5/5 biceps/triceps/dry wall installer strength, RUE weak, able to lift wrist antigravity, dry wall installer strength 1-2/5. SILT b/l ue's. LLE 5/5 DF/PF/KE/KF/HF, RLE 5/ 5 DF/PF/KE/KF/HF. Sensation improving in RLE, able to feel throughout, slightly numb below the knee. HCT 05/12/18: No significant interval change or gross acute intracranial pathology is identified. Correlate clinically to determine further evaluation and follow up. A/P: 52 y/o M w/ PMHx htn, hld, IDDM, cervical spondylosis, now POD 7, s/p C4, 5 , 6 ACDF, C2-T1 PCDF c/b postop NSTEMI thought to be due to demand from surgery/ prolonged hypotension per Cardiology. Exam improving slowly. -Cardiology reccs appreciated, pharmacologic nuclear stress today -Pain regimen as ordered -Telemetry monitoring -Monitor vitals -oob to chair -PT -Bowel regimen as ordered -DVT prophylaxis with Heparin 5000 units sq tid and b/l scds -Incentive spirometry strongly encouraged, visualized pt using IS -Keep brace in place, may remove for 1 hr per day -May Resume ASA 81mg qd -Remainder of management per medicine -Possible d/c to rehab tomorrow above d/w attending Dr Hernandez and Dr Lamar
--- NOTE | 2018-05-15 08:46 | PN ---
Progress Note (short form) - Note Progress Note: POD#7 anterior and posterior cervical spinal surgery Vital Signs Period Temp Pulse Resp BP Sys/Wood Pulse Ox Last 24 Hr 98.7 F 74-82 18-18 108-146/68-86 95 S1S2 RRR lungs cta arm weakness is better moves both legs against gravity IMP POD#7 spinal surgery intraop hypotension, prerenal azotemia-resolved chest pain-postop strain, minimal elevation in cardiac enzymes, telemetry unremarkable, echo reviewed, ok IDDM-lantus, riss, (resume insulin pump upon discharge) HTN-cont bp meds Constipation dvt prophylaxis aggressive physical therapy bowel regimen stress test today-if negative will plan dc to STR explained pt that he needs aggressive rehab and time Problem List - Problems (1) Cervical spondylosis Code(s): M47.812 - SPONDYLOSIS W/O MYELOPATHY OR RADICULOPATHY, CERVICAL REGION Qualifiers: Spinal osteoarthritis complication: with radiculopathy Qualified Code(s): M47.22 - Other spondylosis with radiculopathy, cervical region (2) Hypertension Code(s): I10 - ESSENTIAL (PRIMARY) HYPERTENSION Qualifiers: Hypertension type: essential hypertension Qualified Code(s): I10 - Essential (primary) hypertension (3) Diabetes mellitus Code(s): E11.9 - TYPE 2 DIABETES MELLITUS WITHOUT COMPLICATIONS Qualifiers: Diabetes mellitus type: type 2 Diabetes mellitus manager intermediate insulin use: with detention use (4) Acute prerenal azotemia Code(s): R79.89 - OTHER SPECIFIED ABNORMAL FINDINGS OF BLOOD CHEMISTRY
[2018-05-15] MEDS ORDERED: REGADENOSON 0.4 MG/5 ML PRE-FILLED SYRINGE IVPUSH ONE ×2 (09:37→10:00)
--- NOTE | 2018-05-15 11:16 | PN ---
Progress Note, Physician Chief Complaint: Pt A&Ox3; no chest pain or dyspnea; History of Present Illness: 52 yr old man (b. [place]) who underwent cervical 4-5-6 corpectomies and C2-T1 laminectomies has had prolonged hypotension during procedure and decreased urine output postop no resting in bed - Current Medication List Current Medications: Active Medications Atorvastatin Calcium (Lipitor -) 80 mg PO HS [facility] Last Admin: 05/14/18 21:30 Dose: 80 mg Benzocaine/Menthol (Cepacol Lozenge -) 1 each MM PRN PRN PRN Reason: SORE THROAT Carvedilol (Coreg -) 25 mg PO BID [facility] Last Admin: 05/14/18 21:30 Dose: 25 mg Diphenhydramine HCl (Benadryl -) 25 mg PO Q6H PRN PRN Reason: FOR ITCHING Docusate Sodium (Colace -) 100 mg PO TID [facility] Last Admin: 05/15/18 05:57 Dose: 100 mg Fenofibric Acid (Trilipix -) 45 mg PO DAILY [facility] Last Admin: 05/14/18 10:38 Dose: 45 mg Ferrous Sulfate (Feosol -) 325 mg PO DAILY [facility] Last Admin: 05/14/18 10:38 Dose: 325 mg Folic Acid (Folic Acid -) 1 mg PO DAILY [facility] Last Admin: 05/14/18 10:38 Dose: 1 mg Gabapentin (Neurontin -) 600 mg PO DAILY [facility] Last Admin: 05/14/18 10:37 Dose: 600 mg Heparin Sodium (Porcine) (Heparin -) 5,000 unit SQ TID [facility] Last Admin: 05/15/18 05:57 Dose: 5,000 unit Insulin Aspart (Novolog Vial Sliding Scale -) 1 vial SQ [facility]; Protocol Last Admin: 05/15/18 08:04 Dose: Not Given Insulin Detemir (Levemir Vial) 10 units SQ [facility] Last Admin: 05/14/18 21:30 Dose: 10 units Magnesium Hydroxide (Milk Of Magnesia -) 30 ml PO DAILY PRN PRN Reason: CONSTIPATION Last Admin: 05/13/18 18:13 Dose: 30 ml Multivit/Ca Carb/B Cmplx/FA/Prenat (Nephro-Candida -) 1 tablet PO DAILY [facility] Last Admin: 05/14/18 10:38 Dose: 1 tablet Ondansetron HCl (Zofran Injection) 4 mg IVPUSH Q6H PRN PRN Reason: NAUSEA Polyethylene Glycol (Miralax (For Daily Use) -) 17 gm PO DAILY [facility] Last Admin: 05/14/18 10:38 Dose: 17 gm Promethazine HCl (Phenergan Injection -) 12.5 mg IVPB Q6H PRN PRN Reason: NAUSEA AND/OR VOMITING Valsartan (Diovan -) 320 mg PO DAILY [facility] Last Admin: 05/14/18 10:38 Dose: 320 mg - Objective Vital Signs: Vital Signs Temperature 98.7 F 05/14/18 13:17 Pulse Rate 74 05/15/18 04:00 Respiratory Rate 18 05/15/18 04:00 Blood Pressure 130/70 05/15/18 04:00 O2 Sat by Pulse Oximetry (%) 95 05/14/18 21:00 Labs: CBC, BMP 05/13/18 09:20 05/13/18 09:20 Problem List - Problems (1) H/O cervical spine surgery Code(s): Z98.890 - OTHER SPECIFIED POSTPROCEDURAL STATES (2) Cervical spondylosis Code(s): M47.812 - SPONDYLOSIS W/O MYELOPATHY OR RADICULOPATHY, CERVICAL REGION Qualifiers: Qualified Code(s): M47.22 - Other spondylosis with radiculopathy, cervical region (3) Diabetes mellitus Code(s): E11.9 - TYPE 2 DIABETES MELLITUS WITHOUT COMPLICATIONS (4) Hypertension Code(s): I10 - ESSENTIAL (PRIMARY) HYPERTENSION Qualifiers: Qualified Code(s): I10 - Essential (primary) hypertension (5) Elevated troponin Assessment/Plan: Level decreased from maximum 0.17 to 0.02. ECHO: normal LVEF; no regional wall motion abnormalities mentioned. F/u EKG. Multiple CAD risks, including DM and HTN; episode of chest pain during admission. For stress MIBI today. (Extremely high HDL 06/23; will repeat; pt is on high-dose atorvastatin). Code(s): R74.8 - ABNORMAL LEVELS OF OTHER SERUM ENZYMES
[2018-05-15] MEDS ORDERED: oxyCODONE HCL 5 MG TABLET PO PRN (11:34)
[2018-05-15] MEDS ORDERED: ACETAMINOPHEN 325 MG TABLET (FP) PO PRN (11:34)
[2018-05-15] MEDS ORDERED: PT OWN MED DRAWER 7, Y5N ONE (13:23)
[2018-05-15] MEDS: VALSARTAN 160 MG TABLET (UD) PO SCH (15:01)
[2018-05-15] MEDS: VITAMIN B COMP W-C 1 EA TABLET PO SCH (15:02)
[2018-05-15] MEDS: FOLIC ACID 1 MG TABLET (FP) PO SCH (15:02)
[2018-05-15] MEDS: FENOFIBRIC ACID 45 MG CAP PO SCH (15:02)
[2018-05-15] MEDS: GABAPENTIN 300 MG CAPSULE (FP) PO SCH (15:03)
[2018-05-15] MEDS: CARVEDILOL 25 MG TABLET (FP) PO SCH ×2 (15:03→22:15)
[2018-05-15] MEDS: FERROUS SO4 325 MG TABLET (FP) PO SCH (15:03)
[2018-05-15] MEDS: POLYETHYLENE GLYCOL 3350 119 GM BTL PO SCH (15:04)
[2018-05-15] MEDS: ACETAMINOPHEN 325 MG TABLET (FP) PO PRN (19:51)
[2018-05-15] MEDS: ATORVASTATIN CA 80 MG TABLET (FP) PO SCH (22:15)
[2018-05-15] MEDS: INSULIN (LEVEMIR) 100 UNITS/ML UNITS SQ SCH (22:22)
[2018-05-16] MEDS: oxyCODONE HCL 5 MG TABLET PO PRN (02:46)
[2018-05-16] MEDS: ACETAMINOPHEN 325 MG TABLET (FP) PO PRN (02:46)
[2018-05-16] MEDS: DOCUSATE SODIUM 100 MG CAPSULE (FP) PO SCH (06:32)
[2018-05-16] MEDS: HEPARIN NA (PORCINE) 5,000 UNITS/ML 1ML VIAL SQ SCH (06:33)
[2018-05-16] MEDS: INSULIN SLIDING SCALE (NOVOLOG) 1 VIAL SQ SCH ×2 (06:36→11:34)
[2018-05-16 06:56] VITALS: BP 110/63; PULSE 64; TEMP 98.1
--- NOTE | 2018-05-16 08:38 | PN ---
Progress Note, Physician - Current Medication List Current Medications: Active Medications Acetaminophen (Tylenol -) 650 mg PO Q4H PRN PRN Reason: PAIN LEVEL 7 - 10 Stop: 05/18/18 11:30 Last Admin: 05/16/18 02:46 Dose: 650 mg Acetaminophen (Tylenol -) 325 mg PO Q4H PRN PRN Reason: PAIN LEVEL 4 - 6 Stop: 05/18/18 11:33 Atorvastatin Calcium (Lipitor -) 80 mg PO HS [facility] Last Admin: 05/15/18 22:15 Dose: 80 mg Benzocaine/Menthol (Cepacol Lozenge -) 1 each MM PRN PRN PRN Reason: SORE THROAT Carvedilol (Coreg -) 25 mg PO BID [facility] Last Admin: 05/15/18 22:15 Dose: 25 mg Diphenhydramine HCl (Benadryl -) 25 mg PO Q6H PRN PRN Reason: FOR ITCHING Docusate Sodium (Colace -) 100 mg PO TID [facility] Last Admin: 05/16/18 06:32 Dose: 100 mg Fenofibric Acid (Trilipix -) 45 mg PO DAILY [facility] Last Admin: 05/15/18 15:02 Dose: 45 mg Ferrous Sulfate (Feosol -) 325 mg PO DAILY [facility] Last Admin: 05/15/18 15:03 Dose: 325 mg Folic Acid (Folic Acid -) 1 mg PO DAILY [facility] Last Admin: 05/15/18 15:02 Dose: 1 mg Gabapentin (Neurontin -) 600 mg PO DAILY [facility] Last Admin: 05/15/18 15:03 Dose: 600 mg Heparin Sodium (Porcine) (Heparin -) 5,000 unit SQ TID [facility] Last Admin: 05/16/18 06:33 Dose: 5,000 unit Insulin Aspart (Novolog Vial Sliding Scale -) 1 vial SQ [facility]; Protocol Last Admin: 05/16/18 06:36 Dose: 6 units Insulin Detemir (Levemir Vial) 10 units SQ [facility] Last Admin: 05/15/18 22:22 Dose: 10 units Magnesium Hydroxide (Milk Of Magnesia -) 30 ml PO DAILY PRN PRN Reason: CONSTIPATION Last Admin: 05/13/18 18:13 Dose: 30 ml Multivit/Ca Carb/B Cmplx/FA/Prenat (Nephro-Candida -) 1 tablet PO DAILY [facility] Last Admin: 05/15/18 15:02 Dose: 1 tablet Ondansetron HCl (Zofran Injection) 4 mg IVPUSH Q6H PRN PRN Reason: NAUSEA Oxycodone HCl (Roxicodone -) 10 mg PO Q4H PRN PRN Reason: PAIN LEVEL 7 - 10 Last Admin: 05/16/18 02:46 Dose: 10 mg Oxycodone HCl (Roxicodone -) 5 mg PO Q4H PRN PRN Reason: PAIN LEVEL 4 - 6 Polyethylene Glycol (Miralax (For Daily Use) -) 17 gm PO DAILY [facility] Last Admin: 05/15/18 15:04 Dose: 17 gm Promethazine HCl (Phenergan Injection -) 12.5 mg IVPB Q6H PRN PRN Reason: NAUSEA AND/OR VOMITING Valsartan (Diovan -) 320 mg PO DAILY [facility] Last Admin: 05/15/18 15:01 Dose: 320 mg - Objective Vital Signs: Vital Signs Temperature 98.1 F 05/16/18 06:00 Pulse Rate 64 05/16/18 06:00 Respiratory Rate 05/16/18 06:00 Blood Pressure 110/63 05/16/18 06:00 O2 Sat by Pulse Oximetry (%) 100 05/15/18 20:10 Labs: CBC, BMP 05/13/18 09:20 05/13/18 09:20 Problem List - Problems (1) H/O cervical spine surgery Code(s): Z98.890 - OTHER SPECIFIED POSTPROCEDURAL STATES (2) Cervical spondylosis Code(s): M47.812 - SPONDYLOSIS W/O MYELOPATHY OR RADICULOPATHY, CERVICAL REGION Qualifiers: Spinal osteoarthritis complication: with radiculopathy Qualified Code(s): M47.22 - Other spondylosis with radiculopathy, cervical region (3) Diabetes mellitus Code(s): E11.9 - TYPE 2 DIABETES MELLITUS WITHOUT COMPLICATIONS Qualifiers: Diabetes mellitus type: type 2 Diabetes mellitus chcf insulin use: with security officers and guards use (4) Hypertension Code(s): I10 - ESSENTIAL (PRIMARY) HYPERTENSION Qualifiers: Hypertension type: essential hypertension Qualified Code(s): I10 - Essential (primary) hypertension (5) Elevated troponin Code(s): R74.8 - ABNORMAL LEVELS OF OTHER SERUM ENZYMES
--- NOTE | 2018-05-16 09:08 | DS ---
Physical Examination Vital Signs: Vital Signs Temperature 98.1 F 05/16/18 06:00 Pulse Rate 64 05/16/18 06:00 Respiratory Rate 20 05/16/18 06:00 Blood Pressure 110/63 05/16/18 06:00 O2 Sat by Pulse Oximetry (%) 100 05/15/18 20:10 Findings/Remarks: feeling better, moving arm and leg better. Constitutional: Yes: No Distress, Calm Eyes: Yes: Conjunctiva Clear Neck: Yes: Other (in cervical brace) Cardiovascular: Yes: Regular Rate and Rhythm Respiratory: Yes: Regular, CTA Bilaterally Gastrointestinal: Yes: Normal Bowel Sounds, Soft Extremities: Yes: WNL Edema: No Peripheral Pulses WNL: Yes Neurological: Yes: Other (able to flex and extend forearm 3/5 strength, wrist flexion and extension 4/5, child support case officer 4/5 much improved since last week moving right lower ext better, able to ambulate) Psychiatric: Yes: WNL Labs: CBC, BMP 05/13/18 09:20 05/13/18 09:20 Discharge Summary Reason For Visit: CERVICAL SPONDYLOSIS Current Active Problems Acute prerenal azotemia (Acute) Cervical spondylosis (Acute) Coronary artery disease (Acute) Diabetes mellitus (Acute) Elevated troponin (Acute) H/O cervical spine surgery (Acute) Hypertension (Acute) Hospital Course: underwent cervical 4-5-6 corpectomies and C2-T1 laminectomies -has had prolonged hypotension during procedure and decreased urine output postop -episode of chest pain postop with elevated troponin -weakness of right upper and lower extremity echo unremarkable nuclear stress test with mild inferolateral ischemia, EF 62% postop CT cervical spine and head CT shows no acute abnormality, shows good postop alignment d/w neurosurgery and cardiology stable to discharge for aggressive inpatient rehab cardiac condition will be managed medically with statin/asa/arb/bblocker needs cardiac follow up upon rehab discharge Condition: Fair - Instructions Diet, Activity, Other Instructions: Post Operative Instructions Physical Activity Resume your normal everyday activity as tolerated. No heavy lifting or exercise until seen by your surgeon. You may walk unlimited amounts and climb stairs. You may resume driving the car when you feel safe and comfortable behind the wheel and you are no longer wearing your brace. Do not operate a vehicle while taking narcotic medication. You should walk around your house at least once every 1 to 2 hours while you are awake, to keep your muscles strong and to help prevent blood clots in your legs. You should do calf pumps (point your toes to the ceiling and then down to the floor) several times per hour. Which Activities Should I Avoid? Do not bend or twist your neck repeatedly. Do not lift more than 5 pounds (about the weight of a gallon of milk). If you go to pick something up and it causes strain to the neck muscles, do not lift it. Do not do any heavy pushing or pulling with your arms. Do not do any weight-lifting, sweeping/mopping, shoveling or raking. Brace If you had back surgery, wear TLSO Brace whenever out of bed. May remove to sleep and shower. If you had neck surgery, wear surgical collar 23 hr/day. Remove to shower only. Wound Care Keep your incision clean, dry and covered at all times. Apply an occlusive dressing (Saran wrap or Tegaderm) when showering to avoid getting your incision wet. Do not submerge incision or apply ointments or creams. The murali will be removed in the office in 10-14 days post-op. Diet There are no dietary restrictions. Eat healthy, high-fiber foods. Drink 6-8 glasses of liquid each day. This will assist in keeping your bowels regular. If you have Diabetes be sure to control your sugars as high sugar levels can cause infection. Pain Management You may take Tylenol (Acetaminophen) for pain, do not take Acetaminophen if your prescription pain medication contains Acetaminophen. Any pain prescription medication ordered should be taken as prescribed for moderate to severe pain. If the prescribed dosage is not controlling your pain, please call the office. Do not drive, drink alcohol or operate heavy machinery while taking narcotic pain medications. Call Dr Nolan for any of the following: Severe pain not relieved by medication Fever of 101 or higher Excessive bleeding or drainage on dressing Inability to urinate Any chest pain or shortness of breath, seek Emergency Care. Call the office to confirm a post-operative appointment for 2-3 weeks post-op. ISTOP: [id number] : 04/10/2018 04/11/2018 tramadol hcl 50 mg tablet 60 30 Joanne Hughes NP (pain management) Deshawn Joyce MD [facility] [place] [address] Disposition: HALF-WAY FACILITY - Home Medications Comprehensive Discharge Medication List: Ambulatory Orders Aspirin [Ecotrin] 81 mg PO DAILY 05/07/18 Fenofibrate Nanocrystallized [Fenofibrate] 48 mg PO DAILY 05/07/18 Gabapentin [Neurontin] 600 mg PO DAILY 05/07/18 Terazosin HCl 4 mg PO HS 05/07/18 Valsartan 320 mg PO DAILY 05/07/18 Vitamin B Complex [B Complex] 1 each PO DAILY 05/07/18 Atorvastatin Ca [Lipitor] 80 mg PO HS tablet 05/16/18 Carvedilol [Coreg -] 25 mg PO BID tablet 05/16/18 Docusate Sodium [Colace -] 100 mg PO TID capsule 05/16/18 Ferrous Sulfate [Feosol] 325 mg PO DAILY ud 05/16/18 Folic Acid - 1 mg PO DAILY tablet 05/16/18 Heparin - 5,000 unit SQ TID vial 05/16/18 Insulin (Levemir) [Levemir Vial] 10 units SQ HS units 05/16/18 Insulin Sliding Scale [Novolog Vial Sliding Scale -] 1 vial SQ ACHS units 05/16 Magnesium Hydrox 2400MG/30Ml [Milk of Magnesia -] 30 ml PO DAILY PRN cup Oxycodone HCl/Acetaminophen [Percocet 5-325 mg Tablet] 2 combo PO Q4H PRN #60 tablet MDD 12 tab 05/16/18 Polyethylene Glycol 3350 [Miralax 119 gm Btl -] 17 gm PO DAILY bottle 05/16/18
[2018-05-16] MEDS ORDERED: PT OWN MED DRAWER 7, Y5N ONE (09:30)
[2018-05-16] MEDS: VALSARTAN 160 MG TABLET (UD) PO SCH (09:31)
[2018-05-16] MEDS: VITAMIN B COMP W-C 1 EA TABLET PO SCH (09:31)
[2018-05-16] MEDS: GABAPENTIN 300 MG CAPSULE (FP) PO SCH (09:32)
[2018-05-16] MEDS: FOLIC ACID 1 MG TABLET (FP) PO SCH (09:32)
[2018-05-16] MEDS: CARVEDILOL 25 MG TABLET (FP) PO SCH (09:32)
[2018-05-16] MEDS: FERROUS SO4 325 MG TABLET (FP) PO SCH (09:32)
[2018-05-16] MEDS: FENOFIBRIC ACID 45 MG CAP PO SCH (09:33)
[2018-05-16] MEDS: POLYETHYLENE GLYCOL 3350 119 GM BTL PO SCH (11:34)
== END 2018-05-16 12:23 | DRG 456 ==
LOC: JSAMEDAYSX 06:25 → J8W 17:27 → J2W 05-09 09:12
PROVIDERS: ADMIT Internal Medicine; ATTEND Internal Medicine
PROC: 0RG20AJ Fusion of 2 or more Cervical Vertebral Joints with Interbody Fusion Device, Posterior Approach, Anterior Column, Open Approach (ICD-10-PCS; 2018-05-08)
PROC: 0RB30ZZ Excision of Cervical Vertebral Disc, Open Approach (ICD-10-PCS; 2018-05-08)
PROC: 01N10ZZ Release Cervical Nerve, Open Approach (ICD-10-PCS; 2018-05-08)
PROC: 0PB40ZZ Excision of Thoracic Vertebra, Open Approach (ICD-10-PCS; 2018-05-08)
PROC: 00NW0ZZ Release Cervical Spinal Cord, Open Approach (ICD-10-PCS; 2018-05-08)
PROC: 0JX70ZZ Transfer Back Subcutaneous Tissue and Fascia, Open Approach (ICD-10-PCS; 2018-05-08)
PROC: B01BZZZ Fluoroscopy of Spinal Cord (ICD-10-PCS; 2018-05-08)
PROC: 0RG20A0 Fusion of 2 or more Cervical Vertebral Joints with Interbody Fusion Device, Anterior Approach, Anterior Column, Open Approach (ICD-10-PCS; principal; 2018-05-08 08:00)
PROC: 0RG60AJ Fusion of Thoracic Vertebral Joint with Interbody Fusion Device, Posterior Approach, Anterior Column, Open Approach (ICD-10-PCS; 2018-05-08 08:00)
DX: M40.292 Other kyphosis, cervical region (principal); I21.4 Non-ST elevation (NSTEMI) myocardial infarction; M47.12 Other spondylosis with myelopathy, cervical region; I97.191 Other postprocedural cardiac functional disturbances following other surgery; I97.88 Other intraoperative complications of the circulatory system, not elsewhere classified; M50.022 Cervical disc disorder at C5-C6 level with myelopathy; E11.9 Type 2 diabetes mellitus without complications; I95.89 Other hypotension; M47.22 Other spondylosis with radiculopathy, cervical region; R00.0 Tachycardia, unspecified; K59.09 Other constipation; Y83.8 Other surgical procedures as the cause of abnormal reaction of the patient, or of later complication, without mention of misadventure at the time of the procedure; M40.40 Postural lordosis, site unspecified; G47.33 Obstructive sleep apnea (adult) (pediatric); R74.8 Abnormal levels of other serum enzymes; R07.89 Other chest pain; Z79.4 Long term (current) use of insulin
CPT/HCPCS: 36415; 70450-TC; 72125-TC; 76000-TC-FY; 78452-TC; 80048; 80053; 80061; 82550; 82553; 82962; 83721; 84484; 85025; 85027; 86850; 86900; 86901; 93005; 93010; 93017; 93306-TC; 94760; 97116-GP; 97162-GP; A9502; J0131; J1644; J2785; J7030

== ENCOUNTER 2018-07-07 11:35 | Emergency (ER) | payer OTHER ==
[2018-07-07 11:47] VITALS: TEMP 97.6; BMI 24.3
--- NOTE | 2018-07-07 12:48 | PDOC ---
History of Present Illness - General Chief Complaint: Pain, Acute Stated Complaint: LF ARM NUMB Time Seen by Provider: 07/07/18 12:07 History Source: Patient Exam Limitations: No Limitations - History of Present Illness Initial Comments: 07/07/18 12:46 52 yr old man wih uncontrolled DM, HTN, HLD,s/p cervical spinal surgery presents with intermittent numbness and pain in the left arm radiating from the neck down lasting few seconds improves with shaking and massaging of the left arm, has been increasing in frequency for the past 10 days. when the episode occurs he drops whatever is in his left hand. initially was having symptoms shortly after surgery but now the frequency is worse. c/o right arm weakness and right leg weakness. he is not able to move the right arm, unable to write, requires the help of his left arm to move his right arm. now ambulates with cane due to weakness of this right leg. also has been having trouble swallowing to solid food intermittently, has to swallow with water to have the food move forward. denies bladder/urinary incontinence. c/o dizziness when standing and walking. intermittent left sided chest pressure that lasts few mins, nonradiating, self-resolves, no associated symptoms. denies syncope, cough, palpitations, falls. Past History - Travel Traveled outside of the country in the last 30 days: No Close contact w/someone who was outside of country & ill: No - Past Medical History Allergies/Adverse Reactions: Allergies Allergy/AdvReac Type Severity Reaction Status Date / Time No Known Allergies Allergy Verified 07/07/18 11:43 Home Medications: Ambulatory Orders Aspirin [Ecotrin] 81 mg PO DAILY 05/07/18 Fenofibrate Nanocrystallized [Fenofibrate] 48 mg PO DAILY 05/07/18 Gabapentin [Neurontin] 600 mg PO DAILY 05/07/18 Terazosin HCl 4 mg PO HS 05/07/18 Valsartan 320 mg PO DAILY 05/07/18 Vitamin B Complex [B Complex] 1 each PO DAILY 05/07/18 Atorvastatin Ca [Lipitor] 80 mg PO HS tablet 05/16/18 Carvedilol [Coreg -] 25 mg PO BID tablet 05/16/18 Docusate Sodium [Colace -] 100 mg PO TID capsule 05/16/18 Ferrous Sulfate [Feosol] 325 mg PO DAILY ud 05/16/18 Folic Acid - 1 mg PO DAILY tablet 05/16/18 Insulin (Levemir) [Levemir Vial] 10 units SQ HS units 05/16/18 Insulin Sliding Scale [Novolog Vial Sliding Scale -] 1 vial SQ ACHS units 05/16 Magnesium Hydrox 2400MG/30Ml [Milk of Magnesia -] 30 ml PO DAILY PRN cup Oxycodone HCl/Acetaminophen [Percocet 5-325 mg Tablet] 2 combo PO Q4H PRN #60 tablet MDD 12 tab 05/16/18 Polyethylene Glycol 3350 [Miralax 119 gm Btl -] 17 gm PO DAILY bottle 05/16/18 Anemia: No Asthma: No Cancer: No Cardiac Disorders: No CVA: No COPD: No CHF: No Dementia: No Diabetes: Yes (IDDM on insulin pump) GI Disorders: No Disorders: No HTN: No Hypercholesterolemia: No Liver Disease: No Seizures: No Thyroid Disease: No - Immunization History Immunization Up to Date: Yes - Suicide/Smoking/Psychosocial Hx Smoking History: Never smoked Information on smoking cessation initiated: No Hx Alcohol Use: No Drug/Substance Use Hx: No Substance Use Type: None Hx Substance Use Treatment: No Review of Systems - Review of Systems Constitutional: Yes: Loss of Appetite, Weight Stable. No: Fever HEENTM: Yes: Difficulty Swallowing. No: Blurred Vision, Ocular Prothesis, Tinnitus, Nose Bleeding, Hearing Loss Respiratory: No: Cough, Productive cough Cardiac (ROS): Yes: Chest Tightness. No: Chest Pain, Edema, Irregular Heart Rate, Lightheadedness, Palpitations, Syncope ABD/GI: No: Constipated, Diarrhea, Nausea, Poor Appetite, Vomiting, Abdominal cramping : No: Burning, Dysuria, Frequency, Hematuria, Incontinence, Urgency Musculoskeletal: Yes: Muscle Pain, Muscle Weakness, Neck Pain, Joint Stiffness. No: Back Pain Integumentary: No: Bruising, Erythema, Flushing, Pallor, Pruritus, Rash Neurological: Yes: Numbness (left arm), Paresthesia (left arm), Weakness (right arm and right leg), Unsteady Gait. No: Headache, Seizure, Tingling, Tremors *Physical Exam - Vital Signs Last Vital Signs Temp Pulse Resp BP Pulse Ox 97.6 F 121 H 17 138/84 99 07/07/18 11:44 07/07/18 11:44 07/07/18 11:44 07/07/18 11:44 07/07/18 11:44 - Physical Exam General Appearance: Yes: Appropriately Dressed HEENT: positive: EOMI, RAAD, Pharynx Normal. negative: Rhinorrhea, Sinus Tenderness Neck: positive: Trachea midline, Normal Thyroid, Other (decr rom due to pain and post-op instructions to limit motion) Respiratory/Chest: positive: Lungs Clear, Normal Breath Sounds. negative: Crackles, Rales, Rhonchi, Stridor, Wheezing Cardiovascular: positive: Regular Rhythm, Regular Rate. negative: Edema, Murmur Vascular Pulses: Dorsalis-Pedis (R): 2+, Doralis-Pedis (L): 2+ Gastrointestinal/Abdominal: positive: Normal Bowel Sounds, Flat Musculoskeletal: positive: Normal Inspection. negative: CVA Tenderness, Vertebral Tenderness Extremity: positive: Tender (right shoulder, decr rom on extension and flexion of right shoulder, elbow and wrist to active motion. decr rom in abduction, flexion at shoulder due to pain. ) Integumentary: positive: Dry, Warm. 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 2/5 hip/ knee extension, 4/5 dorsiflexion and 3/5 plantarflexion. unable to illicit any reaction to babinski on right sole. normal sensation and strenth in left upper and lower muscle groups.). negative: Facial Droop Deep Tendon Reflexes: Knee (L): 2+, Knee (R): 0, Bicep (L): 2+, Bicep (R): 0, Tricep (L): 2+, Tricep (R): 0 Moderate Sedation - Procedure Monitoring Vital Signs: Procedure Monitoring Vital Signs Temperature 97.6 F 07/07/18 11:44 Pulse Rate 121 H 07/07/18 11:44 Respiratory Rate 17 07/07/18 11:44 Blood Pressure 138/84 07/07/18 11:44 O2 Sat by Pulse Oximetry (%) 99 07/07/18 11:44 ED Treatment Course - LABORATORY CBC & Chemistry Diagram: 07/07/18 13:05 07/07/18 13:05 Medical Decision Making - Medical Decision Making 07/07/18 13:04 52 yr old man with HTN, DM on insulin pump, s/p cervical spine surgery presents with parasthesias of the left shoulder and weakness of the right side. cbc, cmp, ekg called placed to dr. joyce's office to review findings 07/07/18 13:[address] Joyce to obtain MRI and CT of cervical spine without contrast for further evaluation pending labs 07/07/18 14:37 labs within normal. pending imaging, which is scheduled later this evening. call placed to PCP to place pt under med-surg observation. 07/07/18 15:52 Patient at MRI currently. will likely be able to dc if MRI without acute path cervical spine ct without pathology 07/07/18 16:01 no acute on MRI as per Dr. Joyce reviewed labs and imaging with pt, as there is no acute pathology to address, recommend outpatient follow-up pt in agreement with plan to dc and follow-up as outpatient answered all his questions to his satisfaction. *DC/Admit/Observation/Transfer Diagnosis at time of Disposition: Cervical spondylosis - Discharge Dispostion Disposition: HOME Condition at time of disposition: Stable Decision to Admit order: No - Referrals Referrals: Brian Gaitan MD [Primary Care Provider] - Deshawn Joyce MD, FAANS [Staff Physician] - - Patient Instructions Printed Discharge Instructions: DI for Cervical Radiculopathy Additional Instructions: Please follow-up with Dr. Joyce and Dr. Gaitan for further post-hospital follow-up. Your MRI results are pending, you will receive a phone call tomorrow with the official results, you can also call for the results tomorrow yourself. If you develop any worsening chest pain, trouble breathing, fevers or any new symptoms please return to the hospital - Post Discharge Activity
--- NOTE | 2018-07-07 13:28 | PDOC ---
Attending Attestation - HPI HPI: 07/07/18 13:32 The patient is a 52 year old male with a past medical history of HTN, HLD, and diabetes here today for evaluation of left arm numbness. The patient reports that he had multiple corpectomies on 05/21/18. Since his surgery the patient reports that he has had right upper and lower extremity weakness and now has to ambulate with a cane. He reports that 10 days ago he developed intermittent numbness and tingling in his left upper extremity and notes dizziness today. Patient denies headache. Denies fever, chills. Denies shortness of breath. Denies nausea, vomiting, diarrhea, abdominal pain. Allergies: NKA PCP: Brian Gaitan Neurologist: Deshawn Joyce - Physicial Exam PE: 07/07/18 14:11 GENERAL: Awake, alert, and fully oriented, in no acute distress HEAD: No signs of trauma EYES: PERRLA, EOMI, sclera anicteric, conjunctiva clear ENT: Auricles normal inspection, hearing grossly normal, nares patent, oropharynx clear without exudates. Moist mucosa NECK: +healed scar on the anterior and posterior neck with no erythema or edema. Normal ROM, supple, no lymphadenopathy, JVD, or masses EXTREMITIES: Normal range of motion, no edema. No clubbing or cyanosis. No cords, erythema, or tenderness NEUROLOGICAL: +4/5 strength in right upper extremity compared to 5/5 strength in left upper extremity. +decreased sensation in right upper extremity compared to left upper extremity. +reproducible symptoms when turning head to the left. Cranial nerves II through XII grossly intact. Normal speech, normal gait SKIN: Warm, Dry, normal turgor, no rashes or lesions noted. - Medical Decision Making 07/07/18 13:32 Documentation prepared by MARLI Rangel, acting as nuclear medicine medical director for Maximiliano Mansfield MD. <Mark Lerner - Last Filed: 07/07/18 14:11> - Resident Resident Name: Herb Mandel - ED Attending Attestation I have performed the following: I have examined & evaluated the patient, The case was reviewed & discussed with the resident, I agree w/resident's findings & plan, Exceptions are as noted - Medical Decision Making 07/07/18 13:28 A portion of this note was documented by scribe services under my direction. I have reviewed the details of the note, within reason, and agree with the documentation with the following case summary and management plan written by me. Patient treated in the ED. Nursing notes are reviewed and incorporated into the medical decision-making. Vital signs reviewed. Peripheral IV access obtained by the nurse, laboratory studies are drawn and sent, reviewed and interpreted by myself. Vital Signs Temp Pulse Resp BP Pulse Ox 97.6 F 121 H 17 138/84 99 07/07/18 11:44 07/07/18 11:44 07/07/18 11:44 07/07/18 11:44 07/07/18 11:44 52 year old male with Past medical history of cervical 456 corpectomies and T2 -L1 laminectomies presents with left arm pain and numbness. The patient has had surgery in early May relating to his neck. Since after the surgery, patient has had chronic right arm and right leg decreased strength and numbness. However , the last 10 days, the patient is started developing left arm pain and numbness has been increasingly more frequent. Because of the worsening symptoms , patient's neurosurgeon advised patient come the ER. Patient left arm pain a be secondary to radicular pain. Case discussed with . He requests MRI and CT cervical spine. 07/07/18 15:03 CBC, BMP 07/07/18 13:05 07/07/18 13:05 CMP Sodium 134 mmol/L (136-145) L 07/07/18 13:05 Potassium 4.6 mmol/L (3.5-5.1) 07/07/18 13:05 Chloride 99 mmol/L (98-107) 07/07/18 13:05 Carbon Dioxide 28 mmol/L (21-32) 07/07/18 13:05 Anion Gap 7 MMOL/L (8-16) L 07/07/18 13:05 BUN 23 mg/dL (7-18) H 07/07/18 13:05 Creatinine 1.3 mg/dL (0.55-1.3) 07/07/18 13:05 Creat Clearance w eGFR 58.43 (>60) 07/07/18 13:05 Random Glucose 386 mg/dL (74-106) H* 07/07/18 13:05 Calcium 9.2 mg/dL (8.5-10.1) 07/07/18 13:05 Total Bilirubin 0.4 mg/dL (0.2-1) 07/07/18 13:05 AST 31 U/L (15-37) 07/07/18 13:05 ALT 32 U/L (13-61) 07/07/18 13:05 Alkaline Phosphatase 71 U/L (45-117) 07/07/18 13:05 Total Protein 8.4 g/dl (6.4-8.2) H 07/07/18 13:05 Albumin 3.6 g/dl (3.4-5.0) 07/07/18 13:05 Dr. Joyce states if MRI and CT negative, pt can be d/c'd with outpatient follow up. Dr. Joyce had seen and evaluated the patient in the ED. CT and MRI pending. 07/07/18 15:03 07/07/18 16:[address] Joyce, MRI and CT of the spine is unremarkable. Will have a [employer]PER[employer]OR [employer]LE follow up call for the reads. Follow up as an outpatient. <Maximiliano Mansfield - Last Filed: 07/07/18 16:06> Heart Score/ECG Review #1 ECG reviewed & interpreted by me at: 10:35 07/07/18 14:06 NSR 105, nonspecific T wave abnormality, QTC 422 msec, TWI III, no std/tuan <Maximiliano Mansfield - Last Filed: 07/07/18 16:06>
[2018-07-07 13:34] LABS: BASO % 0.4 % (0-2.0); EOS % 1.5 % (0-4.5); HEMATOCRIT 36.5 % (35.4-49); HEMOGLOBIN 12.2 GM/dL (11.7-16.9); LYMPH % 13.6 % (8-40); MCH 24.1 pg (25.7-33.7); MCHC 33.4 g/dl (32.0-35.9); MEAN CELL VOLUME 71.9 fl (80-96); MEAN PLT VOLUME 8.6 fl (7.5-11.1); MONO % 4.8 % (3.8-10.2); NEUT % 79.7 % (42.8-82.8); PLATELET COUNT 229 K/MM3 (134-434); RBC 5.08 M/mm3 (4.00-5.60); RDW 15.2 % (11.9-15.9); WHITE BLOOD COUNT 9.1 K/mm3 (4.0-10.0)
[2018-07-07 14:02] LABS: ALBUMIN 3.6 g/dl (3.4-5.0); ALK PHOS 71 U/L (45-117); ANION GAP 7 MMOL/L (8-16); BILIRUBIN,TOTAL 0.4 mg/dL (0.2-1); BLOOD UREA NITROGEN 23 mg/dL (7-18); CALCIUM 9.2 mg/dL (8.5-10.1); CHLORIDE 99 mmol/L (98-107); CO2 28 mmol/L (21-32); CREATININE 1.3 mg/dL (0.55-1.3); POTASSIUM 4.6 mmol/L (3.5-5.1); SGOT/AST 31 U/L (15-37); SGPT/ALT 32 U/L (13-61); SODIUM 134 mmol/L (136-145); TOT PROT 8.4 g/dl (6.4-8.2)
[2018-07-07 14:05] LABS: GLUCOSE,RANDOM 386 mg/dL (74-106)
[2018-07-07 15:05] VITALS: BP 164/87; PULSE 101
--- NOTE | 2018-07-08 13:50 | EKG ---
Test Reason : Blood Pressure : / mmHG Vent. Rate : 105 BPM Atrial Rate : 105 BPM P-R Int : 122 ms QRS Dur : 086 ms QT Int : 320 ms P-R-T Axes : 068 060 011 degrees QTc Int : 422 ms SINUS TACHYCARDIA NONSPECIFIC T WAVE ABNORMALITY ABNORMAL ECG WHEN COMPARED WITH ECG OF 14-MAY-2018 10:32, VENT. RATE HAS INCREASED BY 38 BPM INVERTED T WAVES HAVE REPLACED NONSPECIFIC T WAVE ABNORMALITY IN INFERIOR LEADS NONSPECIFIC T WAVE ABNORMALITY NOW EVIDENT IN ANTEROLATERAL LEADS Confirmed by MD Dirk, Mark ([id number]) on 07/08/2018 1:49:47 PM Referred By: Confirmed By:Mark Cavazos MD
== END 2018-07-07 16:40 | disposition home or self-care (01) ==
LOC: JER 11:35
DX: M47.812 Spondylosis without myelopathy or radiculopathy, cervical region (principal); M54.12 Radiculopathy, cervical region; G81.91 Hemiplegia, unspecified affecting right dominant side; R26.89 Other abnormalities of gait and mobility; Z99.89 Dependence on other enabling machines and devices; I10 Essential (primary) hypertension; E78.5 Hyperlipidemia, unspecified; E11.9 Type 2 diabetes mellitus without complications; Z79.4 Long term (current) use of insulin; Z96.41 Presence of insulin pump (external) (internal)
CPT/HCPCS: 36415; 72125-TC; 72141-TC; 80053; 85025; 93005; 93010; 99283-25

== ENCOUNTER 2020-05-15 16:47 | Emergency (ER) | payer OTHER ==
[2020-05-15 17:11] VITALS: TEMP 98.2; BMI 22.6
[2020-05-15] MEDS ORDERED: FAMOTIDINE 20 MG/50 ML IVPB 20 MG/50 ML MG IVPB ONE ×2 (17:49→18:20)
[2020-05-15] MEDS ORDERED: METOCLOPRAMIDE HCL INJECTION 10 MG/2 ML VIAL IVPB ONE (17:49)
[2020-05-15] MEDS ORDERED: LACTATED RINGERS SOLUTION 1000 ML INFUS.BAG IV ONE ×2 (17:50→20:17)
[2020-05-15] MEDS ORDERED: METOCLOPRAMIDE HCL INJECTION 10 MG/2 ML VIAL ONE (18:20)
[2020-05-15 18:58] LABS: BASO % 0.4 % (0-2.0); EOS % 1.7 % (0-4.5); HEMATOCRIT 41.4 % (35.4-49); HEMOGLOBIN 13.8 GM/dL (11.7-16.9); LYMPH % 21.3 % (8-40); MCH 23.9 pg (25.7-33.7); MCHC 33.4 g/dl (32.0-35.9); MEAN CELL VOLUME 71.7 fl (80-96); MEAN PLT VOLUME 8.2 fl (7.5-11.1); MONO % 8.3 % (3.8-10.2); NEUT % 68.3 % (42.8-82.8); PLATELET COUNT 259 K/MM3 (134-434); RBC 5.77 M/mm3 (4.00-5.60); VENOUS BASE EXCESS -1.5 mmol/L (-2-2); VENOUS O2 SATURATION 54.3 % (70-80); VENOUS PCO2 56.1 mmHg (38-52); VENOUS PH 7.287 (7.310-7.410)
[2020-05-15 19:06] LABS: CHLORIDE 102 mmol/L (98-107); INR 0.98 (0.83-1.09); PROTHROMBIN TIME (PATIENT) 12.1 SEC (9.7-13.0); SODIUM 136 mmol/L (136-145)
[2020-05-15 19:08] LABS: CALCIUM 8.8 mg/dL (8.5-10.1)
[2020-05-15 19:09] LABS: ACTIVATED PTT 26.1 SECONDS (25.2-36.5); ALBUMIN 3.4 g/dl (3.4-5.0); ANION GAP 7 MMOL/L (8-16); BLOOD UREA NITROGEN 16.3 mg/dL (7-18); CO2 27 mmol/L (21-32); GLUCOSE,RANDOM 216 mg/dL (74-106)
[2020-05-15 19:11] LABS: BILIRUBIN,DIRECT 0.2 mg/dL (0.0-0.2)
[2020-05-15 19:12] LABS: CREATININE 1.2 mg/dL (0.55-1.3); SGOT/AST 25 U/L (15-37); SGPT/ALT 37 U/L (13-61)
[2020-05-15 19:13] LABS: BILIRUBIN,TOTAL 0.4 mg/dL (0.2-1)
[2020-05-15 19:14] LABS: TOT PROT 7.4 g/dl (6.4-8.2)
[2020-05-15 19:15] LABS: ALK PHOS 67 U/L (45-117)
[2020-05-15 20:12] LABS: LDH 297 U/L (87-246)
[2020-05-15 20:15] LABS: MAGNESIUM 2.1 mg/dL (1.8-2.4)
[2020-05-15 20:16] LABS: LIPASE 300 U/L (73-393)
[2020-05-15 20:41] LABS: MAGNESIUM 1.9 mg/dL (1.8-2.4)
[2020-05-15] MEDS ORDERED: SODIUM CHLORIDE 0.9% 500 ML INFUS.BAG IV ONE (21:46)
[2020-05-15 22:06] LABS: URINE COLOR YELLOW
[2020-05-15 22:07] LABS: URINE APPEARANCE CLEAR
[2020-05-15 22:08] LABS: URINE GLUCOSE (UA) 3+ (NEGATIVE)
[2020-05-15 22:09] LABS: PH,URINE 5.5 (5.0-8.0); URINE BILIRUBIN NEGATIVE (NEGATIVE); URINE KETONE NEGATIVE (NEGATIVE); URINE LEUK ESTERASE NEGATIVE (NEGATIVE); URINE NITRITE NEGATIVE (NEGATIVE); URINE PROTEIN NEGATIVE (NEGATIVE); URINE UROBILINOGEN 0.2 mg/dL (0.2-1.0)
[2020-05-16 00:14] VITALS: BP 132/78; PULSE 88
== END 2020-05-16 00:13 | disposition home or self-care (01) ==
LOC: JER 16:47
PROC: 3E033NZ Introduction of Analgesics, Hypnotics, Sedatives into Peripheral Vein, Percutaneous Approach (ICD-10-PCS; principal; 2020-05-15)
PROC: 3E033GC Introduction of Other Therapeutic Substance into Peripheral Vein, Percutaneous Approach (ICD-10-PCS; 2020-05-15)
DX: R11.2 Nausea with vomiting, unspecified (principal)
CPT/HCPCS: 36415; 71045-TC-FY; 74177-TC; 80053; 81003; 82010; 82248; 82550; 82728; 82803; 83605; 83615; 83690; 83735; 84484; 85025; 85379; 85610; 85730; 86140; 87040; 87086; 93005; 93010; 99285-25; C9803; Q9967; U0003